=== PATIENT | male | born 1970 | race Caucasian/White ===

== ENCOUNTER 2016-08-17 13:15 | Observation (INO) ==
--- NOTE | 2016-08-17 13:26 | Emergency Department Note ---
Disposition Clinical Impression: Chest pain Disposition: Admitted As Inpatient Condition: Fair General Adult HPI - General Chief complaint: ED Chest Pain Stated complaint: chest pain Time Seen by Provider: 08/17/16 13:18 Source: patient Limitations: no limitations - History of Present Illness Pain Scale: 9 - Related Data Home Medications Medication Instructions Recorded Confirmed Alprazolam [Xanax] 2 mg PO TID 08/29/15 08/17/16 Gabapentin [Neurontin] 800 mg PO QID 08/29/15 08/17/16 Metoprolol [Lopressor] 25 mg PO BID 08/29/15 08/17/16 Quetiapine Fumarate [SEROquel] 100 mg PO HS 08/29/15 08/17/16 Furosemide [Lasix] 20 mg PO DAILY 08/17/16 08/17/16 OXcarbazepine [Trileptal] 300 mg PO DAILY 08/17/16 08/17/16 Potassium Chloride [K-Tab ER] 20 meq PO DAILY 08/17/16 08/17/16 Valsartan/Hydrochlorothiazide 1 each PO DAILY 08/17/16 08/17/16 [Diovan Hct 320-12.5 mg Tab] Allergies Allergy/AdvReac Type Severity Reaction Status Date / Time No Known Allergies Allergy Verified 11/14/14 08:01 Past Medical History - Past Medical History Medical history: Reports: hypertension, kidney stones, other Surgical history: Reports: orthopedic, other, other Psychiatric history: Reports: anxiety, bipolar - Social History Smoking Status: Never smoker Smokeless Tobacco Status: No Alcohol use: Reports: none Drug use: Reports: none Physical Exam - General Limitations: no limitations General appearance: alert Course Vital Signs Temperature 98.2 F 08/17/16 13:16 Pulse Rate 70 08/17/16 13:16 Respiratory Rate 16 08/17/16 13:16 Blood Pressure 192/100 08/17/16 13:16 O2 Sat by Pulse Oximetry 99 08/17/16 13:16 Temperature 98.3 F 08/17/16 16:19 Pulse Rate 64 08/17/16 16:19 Respiratory Rate 16 08/17/16 16:19 Blood Pressure 192/97 08/17/16 16:19 O2 Sat by Pulse Oximetry 98 08/17/16 16:19 Oxygen Delivery Oxygen Delivery Room Air Medical Decision Making - Lab Data Result diagrams: 08/17/16 13:58 08/17/16 13:58 Lab Results 08/17/16 08/17/16 08/17/16 Range/Units 13:58 13:58 13:58 WBC 7.4 (4.3-11.1) K/mcL RBC 5.61 H (4.19-5.50) M/mcL Hgb 15.8 (12.9-16.9) g/dL Hct 47.0 (37.5-50.1) % MCV 83.8 (83.0-100.0) fL MCH 28.2 (28.0-33.3) pg MCHC 33.6 (31.6-35.5) g/dL RDW 13.3 (11.5-14.5) % Plt Count 195 (140-400) K/mcL MPV 11.2 (9.4-12.4) fL Immature Gran % 0.3 (0-4) % Seg Neutrophils % 76.2 % Lymphocytes % 17.1 % Monocytes % 5.8 % Eosinophils % 0.3 % Basophils % 0.3 % Neutrophils # 5.6 (1.6-8.9) K/mcL Lymphocytes # 1.3 (0.6-4.6) K/mcL Monocytes # 0.4 (0.0-1.3) K/mcL Eosinophils # 0.0 (0.0-0.6) K/mcL Basophils # 0.0 (0.0-0.2) K/mcL PT 13.0 H (9.4-12.1) Seconds INR 1.2 APTT 33.2 (26.0-36.0) Seconds Sodium (136-145) mEq/L Potassium (3.5-4.5) mEq/L Chloride (98-109) mEq/L Carbon Dioxide (19-29) mEq/L BUN (8-26) mg/dL Creatinine (0.72-1.25) mg/dL Est GFR ( Amer) (> 60) Est GFR (Non-Af Amer) (> 60) BUN/Creatinine Ratio (6-26) Glucose (70-99) mg/dL Calculated Osmolality (280-300) Calcium (8.6-10.8) mg/dL Troponin I (0-0.03) ng/mL B-Natriuretic Peptide 27 (0-100) pg/mL 08/17/16 08/17/16 Range/Units 13:58 13:58 WBC (4.3-11.1) K/mcL RBC (4.19-5.50) M/mcL Hgb (12.9-16.9) g/dL Hct (37.5-50.1) % MCV (83.0-100.0) fL MCH (28.0-33.3) pg MCHC (31.6-35.5) g/dL RDW (11.5-14.5) % Plt Count (140-400) K/mcL MPV (9.4-12.4) fL Immature Gran % (0-4) % Seg Neutrophils % % Lymphocytes % % Monocytes % % Eosinophils % % Basophils % % Neutrophils # (1.6-8.9) K/mcL Lymphocytes # (0.6-4.6) K/mcL Monocytes # (0.0-1.3) K/mcL Eosinophils # (0.0-0.6) K/mcL Basophils # (0.0-0.2) K/mcL PT (9.4-12.1) Seconds INR APTT (26.0-36.0) Seconds Sodium 139 (136-145) mEq/L Potassium 3.7 (3.5-4.5) mEq/L Chloride 104 (98-109) mEq/L Carbon Dioxide 25 (19-29) mEq/L BUN 11 (8-26) mg/dL Creatinine 0.90 (0.72-1.25) mg/dL Est GFR ( Amer) > 60 (> 60) Est GFR (Non-Af Amer) > 60 (> 60) BUN/Creatinine Ratio 12 (6-26) Glucose 119 H (70-99) mg/dL Calculated Osmolality 289 (280-300) Calcium 10.2 (8.6-10.8) mg/dL Troponin I 0.00 (0-0.03) ng/mL B-Natriuretic Peptide (0-100) pg/mL Attestation Statement - Attestation Attestation: I examined this patient and my medical decision-making was reviewed with the [employer] MACHINE OPERATOR/PA/Advanced Practice Nurse/Resident Physician. I agree with the documented findings, disposition and treatment plan as described except to the extent set forth below. Face to face time provided C/o CP over past 5 hrs. h/o HTN. Extensive at triage. Anxious appearing on exam. Patient seen and evaluated in conjunction with the resident physician Dr. Maria
[2016-08-17] MEDS ORDERED: Aspirin 81 MG TAB.CHEW PO ONE (13:27)
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
[2016-08-17 14:06] LABS: Basophils % 0.3 %; Eosinophils % 0.3 %; Hemoglobin 15.8 g/dL (12.9-16.9); Immature Granulocytes % 0.3 % (0-4); Lymphocytes # 1.3 K/mcL (0.6-4.6); Lymphocytes % 17.1 %; Mean Corpuscular HGB Conc 33.6 g/dL (31.6-35.5); Mean Corpuscular Hemoglobin 28.2 pg (28.0-33.3); Mean Corpuscular Volume 83.8 fL (83.0-100.0); Mean Platelet Volume 11.2 fL (9.4-12.4); Monocytes # 0.4 K/mcL (0.0-1.3); Monocytes % 5.8 %; Neutrophils # 5.6 K/mcL (1.6-8.9); Platelet Count 195 K/mcL (140-400); Red Blood Count 5.61 M/mcL (4.19-5.50); Red Cell Distribution Width 13.3 % (11.5-14.5); Segmented Neutrophils % 76.2 %
[2016-08-17 14:17] LABS: INR 1.2
[2016-08-17 14:18] LABS: BUN/Creatinine Ratio 12 (6-26); Blood Urea Nitrogen 11 mg/dL (8-26); Calcium 10.2 mg/dL (8.6-10.8); Carbon Dioxide 25 mEq/L (19-29); Chloride 104 mEq/L (98-109); Glucose 119 mg/dL (70-99); Osmolality,Calculated 289 (280-300); Potassium 3.7 mEq/L (3.5-4.5); Sodium 139 mEq/L (136-145); eGFR For African Americans > 60 (> 60); eGFR For Non-African Americans > 60 (> 60)
[2016-08-17 14:19] LABS: Activated Partial Thrombo Time 33.2 Seconds (26.0-36.0)
[2016-08-17] MEDS: Nitroglycerin 0.4 MG TAB.SUBL SL ONE ×2 (14:26→14:40)
[2016-08-17] MEDS ORDERED: Naloxone 0.4 MG/ML INJ IVP PRN (17:19)
[2016-08-17] MEDS ORDERED: Ondansetron 4 MG/2 ML VIAL IVP PRN (17:19)
[2016-08-17] MEDS ORDERED: Nitroglycerin 0.4 MG TAB.SUBL SL PRN (17:27)
--- NOTE | 2016-08-17 18:03 | Internal Med History&Physical ---
<Patricia Badillo - Last Filed: 08/17/16 18:15> Date of Encounter: 08/17/16 Time of Encounter: 17:57 Assessment and Plan (1) Chest pain Current visit: Yes Status: Acute Patient has been experiencing midsternal nonradiating chest pain which she rates 8 out 10 which started this a.m. Pain was relieved with nitroglycerin. His risk factors of hypertension morbid obesity family history. First cardiac troponin was negative we will continue to cycle 2 continuous cardiac monitoring 3 continue with aspirin and beta denise we will hold morning dose 4 obtain cardiac echo 5 nothing by mouth after midnight-patient will undergo phonological stress in a.m. 6 lipid level Qualifiers: Chest pain type: unspecified Qualified Code(s): R07.9 - Chest pain, unspecified (2) HTN (hypertension) Current visit: Yes Status: Acute 1 presently controlled we will continue with metoprolol, Diovan - Qualifiers: Hypertension type: essential hypertension Qualified Code(s): I10 - Essential (primary) hypertension (3) Bipolar 1 disorder Current visit: No Status: Chronic 1 presently stable we will continue with home medications (4) DVT prophylaxis Current visit: Yes Status: Acute 1 [facility] Internal Medicine - H&P: HPI Chief complaint: Chest pain Admitted From: Emergency Dept Plans for Post Hospital Care: Home History of present illness: Mr. Adair is a 45 year old male past medical history of hypertension bipolar disorder and morbid obesity. Patient awoke approximately 8:30 this a.m. experiencing fluttering-like pain midsternally the pain then became very sharp to aching radiating to his left chest there were no aggravating or relieving factors he did have associated symptoms of diaphoresis and nausea he rated 8 out of 10. The pain continued throughout the day without any relief. He denies any fevers chills diarrhea shortness of breath or abdominal pain. He presented to the ER with the above complaints. According to ER records lab work was obtained which was all unremarkable troponin was 0. EKG was sinus rhythm no ST-T wave abnormalities noted. Chest x-ray is clear. Patient does have a family cardiac history his mother undergoing bypass surgery age 50 for father dying of sudden [place] at age 62. He has been admitted for further workup and evaluation. Presently states he is having 98 out of 10 mid sternal chest pain nonradiating no associated symptoms at this time. Heart sounds are regular S1 and S2 with no rubs clicks gallops or murmurs noted lungs sounds are clear throughout all narvaez. Abdomen soft nontender lower extremities there is slight pedal edema bilaterally. He is presently hemodynamically stable this time I reviewed this case with Dr. Agosto who agrees with plan. Past Med Surg Social Fam HX - Past Medical History Medical history: hypertension, kidney stones, other Psychiatric history: anxiety, bipolar - Past Surgical History Surgical History: orthopedic, other, other - Social History Smoking Status: Never smoker Smokeless Tobacco Status: No Alcohol use: none Drug use: none - Family History Mother Adopted: [place]: Celi Adair Age: 62 Family Member Ethnicity: Non- Living Status: Still Living Hx Family Cardiac Disorders: Yes (CABG) Hx Family Respiratory Disorders: Yes (COPD) Hx Family Cancer: No Hx Family GI Disorders: No Hx Family Genitourinary Disorders: No Hx Family Endocrine Disorder: Yes (Diabetes) Hx Family Musculoskeletal Disorders: No Hx Family Neuromuscular Disorders: No Hx Family Neurologic Disorders: No Hx Family HEENT Disorders: No Hx Family Autoimmune Disorders: No Hx Family Reproductive Disorders: No Hx Family Psychosocial Disorders: No Hx Family Medical Disorders: No Father Living Status: Age at : 62 Cause of : [place] Internal Medicine - H&P: Meds Alprazolam [Xanax] 2 mg PO TID 08/29/15 [History] Gabapentin [Neurontin] 800 mg PO QID 08/29/15 [History] Metoprolol [Lopressor] 25 mg PO BID 08/29/15 [History] Quetiapine Fumarate [SEROquel] 100 mg PO HS 08/29/15 [History] Furosemide [Lasix] 20 mg PO DAILY 08/17/16 [History] OXcarbazepine [Trileptal] 300 mg PO DAILY 08/17/16 [History] Potassium Chloride [K-Tab ER] 20 meq PO DAILY 08/17/16 [History] Valsartan/Hydrochlorothiazide [Diovan Hct 320-12.5 mg Tab] 1 each PO DAILY 08/17 [History] Allergies No Known Allergies Allergy (Verified 11/14/14 08:01) All Systems PM: A 10-system review of systems was performed and is negative for pertinent findings except as documented above in the HPI. - Constitutional Constitutional: no chills, no fever(s), no night sweats - EENT Eyes: no change in vision, no discharge, no pain, no photophobia Nose, mouth and throat: no dysphagia, no nasal discharge, no neck pain, no sore throat - Cardiovascular Cardiovascular ROS IM: chest pain, edema, no diaphoresis, no dyspnea, no lightheadedness, no palpitations, no syncope - Respiratory Respiratory: no cough, no dyspnea, no wheezing, no excessive phlegm production - Gastrointestinal Gastrointestinal: nausea, no abdominal pain, no diarrhea, no hematemesis, no hematochezia, no melena, no vomiting - Musculoskeletal Musculoskeletal ROS IM: no numbness, no tingling - Integumentary Integumentary IM: no rash, no unusual bruising - Neurological Neurological ROS: no confusion, no convulsions, no focal weakness, no numbness, no tingling, no tremor(s) - Hematologic/Lymphatic Hematologic/Lymphatic: no easy bruising - Constitutional Vitals: Temp Pulse Resp BP Pulse Ox 98.3 F 64 16 192/97 98 08/17/16 16:19 08/17/16 16:19 08/17/16 16:19 08/17/16 16:19 08/17/16 16:19 General appearance: Present: A&O X 3, morbidly obese - Head Head exam: Present: atraumatic, normocephalic - Eye Eye exam: Present: PERRL, conjuntiva pink, sclera anicteric Pupils: Present: PERRL - Neck Neck exam general surgery: Present: supple, trachea midline. Absent: lymphadenopathy - Respiratory Respiratory exam: Present: CTAB. Absent: accessory muscle use, rales, rhonchi, wheezes - Cardiovascular Cardiovascular exam: Present: RRR, +S1, +S2. Absent: diastolic murmur, gallop, rubs, systolic murmur - GI/Abdominal GI/Abdominal exam: Present: normal bowel sounds, soft, no peritoneal signs. Absent: distended, tenderness - Extremities Exam Extremities exam: Present: warm, radial pulses palpable and symetrical. Absent : calf tenderness, cyanotic, pedal edema - Neurological Exam Neurological exam: Present: CN II-XII intact, oriented X3, no focal deficits. Absent: pronater drift, facial droop, speech deficit - Skin Skin exam: Present: dry, intact Internal Med - H&P Results - Labs CBC & Chem 7: 08/17/16 13:58 08/17/16 13:58 - EKG Data EKG shows normal: sinus rhythm - EKG Data Prior EKG available for review: yes When compared to previous EKG: there is no significant change - Diagnostic Studies Other Images Additional comments: Chest X-Ray 08/17/16 13:27 IMPRESSION: No acute cardiopulmonary process. D/ / 08/17/2016 15:19:01 Jean John MD / jorden Interpreting Provider: Jean John MD <Garrett Agosto T - Last Filed: 08/17/16 18:43> Date of Encounter: 08/17/16 Internal Medicine - H&P: HPI History of present illness: Mr. Adair is a 45 year old male All Systems PM: A 10-system review of systems was performed and is negative for pertinent findings except as documented above in the HPI. - Constitutional Vitals: Temp Pulse Resp BP Pulse Ox 98.3 F 64 16 192/97 98 08/17/16 16:19 08/17/16 16:19 08/17/16 16:19 08/17/16 16:19 08/17/16 16:19 Internal Med - H&P Results - Labs CBC & Chem 7: 08/17/16 13:58 08/17/16 13:58 - Attending Attestation 45 M HLD, DM, Morbidly Obese, HTN presented with chest pain Seen independently and examined Chest pain is not reproducible No EKG changes CXR unremarkable Labs unremarkable Agree with stress test if trops are negative X2, Nitro prn morphine prn.
[2016-08-17] MEDS: *HR* Morphine 2 MG/ML SYRINGE IVP PRN (18:43)
[2016-08-17] MEDS ORDERED: Perflutren Lipid Microsphere 1.3 ML in 0.9 % Sodium Chloride 8.7 ML IVP ONE (20:01)
[2016-08-17] MEDS: Gabapentin 400 MG CAPSULE PO SCH (20:18)
[2016-08-17] MEDS: ALPRAZolam 1 MG TABLET PO SCH (20:18)
[2016-08-17] MEDS: Acetaminophen 325 MG TABLET PO PRN (20:35)
[2016-08-17] MEDS ORDERED: OXcarbazepine 150 MG TABLET PO SCH (21:00)
[2016-08-18] MEDS: *HR* Morphine 2 MG/ML SYRINGE IVP PRN ×3 (00:27→09:09)
[2016-08-18] MEDS: Acetaminophen 325 MG TABLET PO PRN (03:33)
[2016-08-18 03:49] LABS: BUN/Creatinine Ratio 15 (6-26); Basophils % 0.4 %; Blood Urea Nitrogen 15 mg/dL (8-26); Calcium 9.2 mg/dL (8.6-10.8); Carbon Dioxide 24 mEq/L (19-29); Chloride 107 mEq/L (98-109); Chol/HDL Ratio 3.6 (0-4.9); Cholesterol 120 mg/dL (< 200); Eosinophils % 0.6 %; Glucose 94 mg/dL (70-99); HDL Cholesterol 33 mg/dL (40-59); Hematocrit 43.5 % (37.5-50.1); Hemoglobin 14.6 g/dL (12.9-16.9); Immature Granulocytes % 0.3 % (0-4); LDL Cholesterol,Calculated 59 mg/dL (0-99); Lymphocytes # 2.5 K/mcL (0.6-4.6); Lymphocytes % 35.4 %; Magnesium 2.2 mg/dL (1.6-2.6); Mean Corpuscular HGB Conc 33.6 g/dL (31.6-35.5); Mean Corpuscular Hemoglobin 28.9 pg (28.0-33.3); Mean Platelet Volume 11.6 fL (9.4-12.4); Monocytes # 0.7 K/mcL (0.0-1.3); Monocytes % 9.6 %; Neutrophils # 3.8 K/mcL (1.6-8.9); Osmolality,Calculated 293 (280-300); Platelet Count 179 K/mcL (140-400); Red Blood Count 5.06 M/mcL (4.19-5.50); Red Cell Distribution Width 13.7 % (11.5-14.5); Segmented Neutrophils % 53.7 %; Sodium 141 mEq/L (136-145); Triglycerides 138 mg/dL (< 150); eGFR For African Americans > 60 (> 60); eGFR For Non-African Americans > 60 (> 60)
[2016-08-18 03:51] LABS: Potassium 3.7 mEq/L (3.5-4.5)
[2016-08-18] MEDS ORDERED: Regadenoson 0.4 MG/5 ML SYRINGE IVP ONE (06:13)
[2016-08-18] MEDS ORDERED: OXcarbazepine 150 MG TABLET PO SCH (09:00)
[2016-08-18] MEDS ORDERED: Furosemide 20 MG TABLET PO SCH (09:00)
[2016-08-18] MEDS ORDERED: hydroCHLOROthiazide 25 MG TABLET PO SCH (09:00)
[2016-08-18] MEDS ORDERED: Aspirin Enteric Coated 81 MG Tablet PO SCH (09:00)
[2016-08-18] MEDS ORDERED: Valsartan 160 MG TABLET PO SCH (09:00)
[2016-08-18 09:08] VITALS: BP 165/119
[2016-08-18] MEDS: Gabapentin 400 MG CAPSULE PO SCH (09:08)
[2016-08-18] MEDS: ALPRAZolam 1 MG TABLET PO SCH (09:09)
[2016-08-18] MEDS ORDERED: *HR* OxyCODONE/APAP 5/325 TABLET PO PRN (10:42)
--- NOTE | 2016-08-18 11:54 | Discharge Summary ---
Date of Encounter: 08/18/16 Time of Encounter: 10:30 - Discharge Diagnosis (1) Chest pain Priority: Primary Status: Acute Qualifiers: Chest pain type: unspecified Qualified Code(s): R07.9 - Chest pain, unspecified (2) DVT prophylaxis Priority: Secondary Status: Acute (3) HTN (hypertension) Priority: Secondary Status: Acute Qualifiers: Hypertension type: essential hypertension Qualified Code(s): I10 - Essential (primary) hypertension - Discharge Medications Prescriptions: Acetaminophen 650 mg PO Q6H #20 solution Aspirin Enteric Coated [Aspirin EC] 81 mg PO DAILY #30 tablet. Metoprolol [Lopressor] 25 mg PO BID #60 tablet Home Medications: Alprazolam [Xanax] 2 mg PO TID 08/29/15 [History] Gabapentin [Neurontin] 800 mg PO QID 08/29/15 [History] Metoprolol [Lopressor] 25 mg PO BID 08/29/15 [History] Quetiapine Fumarate [SEROquel] 100 mg PO HS 08/29/15 [History] Furosemide [Lasix] 20 mg PO DAILY 08/17/16 [History] OXcarbazepine [Trileptal] 300 mg PO DAILY 08/17/16 [History] Potassium Chloride [K-Tab ER] 20 meq PO DAILY 08/17/16 [History] Valsartan/Hydrochlorothiazide [Diovan Hct 320-12.5 mg Tab] 1 each PO DAILY 08/17 [History] Acetaminophen 650 mg PO Q6H #20 solution 08/18/16 [Rx] Aspirin Enteric Coated [Aspirin EC] 81 mg PO DAILY #30 tablet. 08/18/16 [Rx] Metoprolol [Lopressor] 25 mg PO BID #60 tablet 08/18/16 [Rx] Allergies/Adverse Reactions: Allergies No Known Allergies Allergy (Verified 11/14/14 08:01) Procedures/tests Complete & Pending: Procedures Performed prior 72 hours Category Date Time Status NM derrick perf SPECT multi [NM] Routine Exams 08/17/16 17:51 Taken EV echocardiogram w enhance Routine Y 08/17/16 17:48 Completed SP pharm nuclear stress Routine Y 08/18/16 07:15 Completed Date of admission: 08/17/16 15:20 Primary care physician: Sukhwinder Liang Discharging clinician: Kinga Gamble Anticipated date of discharge: 08/18/16 - Patient Status Disposition: Left Against Medical Advice Condition: Fair - Discharge Instructions Follow Up With: Leticia Teixeira CNP [Advanced Practice Nurse] - 08/25/16 11:30 am (Dr. Person out of office, f/u appt scheduled with KAREN) Miah Person DO [Primary Care Provider] - Interval History: Mr. Adair is a 45 year old male past medical history of hypertension bipolar disorder and morbid obesity. Patient awoke approximately 8:30 this a.m. experiencing fluttering-like pain midsternally the pain then became very sharp to aching radiating to his left chest there were no aggravating or relieving factors he did have associated symptoms of diaphoresis and nausea he rated 8 out of 10. The pain continued throughout the day without any relief. He denies any fevers chills diarrhea shortness of breath or abdominal pain. He presented to the ER with the above complaints. According to ER records lab work was obtained which was all unremarkable troponin was 0. EKG was sinus rhythm no ST-T wave abnormalities noted. Chest x-ray is clear. Patient does have a family cardiac history his mother undergoing bypass surgery age 50 for father dying of sudden MA at age 62. He has been admitted for further workup and evaluation. Presently states he is having 98 out of 10 mid sternal chest pain nonradiating no associated symptoms at this time. Heart sounds are regular S1 and S2 with no rubs clicks gallops or murmurs noted lungs sounds are clear throughout all narvaez. Abdomen soft nontender lower extremities there is slight pedal edema bilaterally. Hospital course: Mr. Adair is a 45 year old male admitted for chest pain. Patient was placed on cardiac monitoring, 3 sets of troponin negative. EKG and chest x-ray unremarkable. Patient had first half of stress test this morning. However, patient said that he has emergency with his energy attorney and court issue, which cannot delay. He asked to sign AMA and leave hospital. I saw and examined the patient earlier. He said that the pain subsided but still mildly painful, 3-4/10. Denies shortness of breath. Vitals are stable except BP 165/119. I went to the room again and talked to patient. I told him the risk of leaving hospital with AMA, which include undiagnosed life-threatening medical problem, delayed treatment, and even . Pt verbalized understanding and still insisted with AMA. Finally, patient left with AMA, prescription of aspirin 81 mg by mouth daily, metoprolol 25 mg twice a day, and Tylenol when necessary was given patient. Patient promised to follow-up with PCP as outpatient as soon as possible, and come back to ER if symptoms are getting worse. - Time Spent with Patient Total time spent providing and/or coordinating discharge services: 40 min Greater than 30 minutes - Constitutional Vitals: Temp Pulse Resp BP Pulse Ox 98.2 F 80 18 165/119 98 08/18/16 09:06 08/18/16 09:06 08/18/16 09:06 08/18/16 09:06 08/18/16 09:06 General appearance: Present: A&O X 3, morbidly obese - Head Head exam: Present: atraumatic, normocephalic - Eye Eye exam: Present: PERRL, conjuntiva pink, sclera anicteric Pupils: Present: PERRL - Neck Neck exam general surgery: Present: supple, trachea midline. Absent: lymphadenopathy - Respiratory Respiratory exam: Present: CTAB. Absent: accessory muscle use, rales, rhonchi, wheezes - Cardiovascular Cardiovascular exam: Present: RRR, +S1, +S2. Absent: diastolic murmur, gallop, rubs, systolic murmur - GI/Abdominal GI/Abdominal exam: Present: normal bowel sounds, soft, no peritoneal signs. Absent: distended, tenderness - Extremities Exam Extremities exam: Present: warm, radial pulses palpable and symetrical. Absent : calf tenderness, cyanotic, pedal edema - Neurological Exam Neurological exam: Present: CN II-XII intact, oriented X3, no focal deficits. Absent: pronater drift, facial droop, speech deficit - Skin Skin exam: Present: dry, intact
--- NOTE | 2016-08-18 17:21 | Electrocardiograph Report ---
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
== END 2016-08-18 11:00 | disposition left against medical advice (07) ==
LOC: EMEROO 13:15 → 2ANU 13:15
PROVIDERS: ADMIT Internal Medicine; ATTEND Internal Medicine

== ENCOUNTER 2016-11-12 12:10 | Observation (INO) ==
[2016-11-12 12:55] LABS: Basophils % 0.6 %; Eosinophils # 0.3 K/mcL (0.0-0.6); Eosinophils % 3.8 %; Hematocrit 43.8 % (37.5-50.1); Hemoglobin 13.9 g/dL (12.9-16.9); Immature Granulocytes % 0.3 % (0-4); Mean Corpuscular HGB Conc 31.7 g/dL (31.6-35.5); Mean Corpuscular Hemoglobin 27.8 pg (28.0-33.3); Mean Corpuscular Volume 87.6 fL (83.0-100.0); Mean Platelet Volume 11.7 fL (9.4-12.4); Monocytes # 0.6 K/mcL (0.0-1.3); Monocytes % 8.5 %; Neutrophils # 3.9 K/mcL (1.6-8.9); Platelet Count 151 K/mcL (140-400); Red Cell Distribution Width 13.2 % (11.5-14.5); Segmented Neutrophils % 56.8 %
[2016-11-12 13:06] LABS: Calcium 9.2 mg/dL (8.6-10.8); Potassium 4.4 mEq/L (3.5-4.5)
--- NOTE | 2016-11-12 16:41 | Emergency Department Note ---
Disposition Clinical Impression: Chest pain Disposition: Admitted As Inpatient Condition: Good Referrals: Miah Person DO [Primary Care Provider] - Forms: ED Satisfaction Letter Time of Disposition: 17:22 Chest Pain HPI - General Chief Complaint: ED Chest Pain Stated Complaint: chest pain Time Seen by Provider: 11/12/16 16:06 Source: patient Mode of arrival: ambulatory Limitations: no limitations Vital Signs Reviewed: Yes Nursing Notes Reviewed: Yes - History of Present Illness HPI Narrative: Patient presents to the ED with the chief complaint of chest pain. Patient reports that he was admitted to the hospital a few months ago for similar episodes of chest pain. He reportedly had a normal nuclear stress test , but was supposed to have a heart catheter as an inpatient and he decided to sign out AGAINST MEDICAL ADVICE because he had to go to a court appointment. States that over the last 2 days he has had a return of this chest pain. He describes it as an electricity-like pain that he relates to being shot in the chest with a taser gun. States it lasts very briefly only a second or 2 at times. In short of breath and nauseated. That resolved spontaneously. He does not have any exertional symptoms and cannot seem to bring on the pain. States that he has not followed up with his primary care physician or a vascular surgery physician as he said he would and thinks that he needs to get checked out again. No fever or chills. No shortness of breath other than when the pain hit. No abdominal pain, nausea, vomiting or diarrhea. No history of DVT or PE Severity scale (1-10): 0 - Related Data Home Medications Medication Instructions Recorded Confirmed Alprazolam [Xanax] 2 mg PO TID 08/29/15 11/12/16 Gabapentin [Neurontin] 800 mg PO QID 08/29/15 11/12/16 Quetiapine Fumarate [SEROquel] 100 mg PO HS 08/29/15 11/12/16 Furosemide [Lasix] 20 mg PO DAILY 08/17/16 11/12/16 OXcarbazepine [Trileptal] 300 mg PO HS 08/17/16 11/12/16 Potassium Chloride [K-Tab ER] 20 meq PO DAILY 08/17/16 11/12/16 Valsartan/Hydrochlorothiazide 1 each PO DAILY 08/17/16 11/12/16 [Diovan Hct 320-12.5 mg Tab] Acetaminophen 650 mg PO Q6H PRN 11/12/16 11/12/16 Previous Rx's Medication Instructions Recorded Aspirin Enteric Coated [Aspirin EC] 81 mg PO DAILY #30 tablet. 08/18/16 Metoprolol [Lopressor] 25 mg PO BID #60 tablet 08/18/16 Allergies Allergy/AdvReac Type Severity Reaction Status Date / Time No Known Allergies Allergy Verified 11/14/14 08:01 All systems ED: reviewed and negative except as stated. Constitutional: Denies: fever, chills Cardiovascular: Reports: chest pain. Denies: dyspnea on exertion Respiratory: Reports: cough. Denies: sputum production Gastrointestinal: Reports: nausea. Denies: vomiting Genitourinary: Denies: dysuria Musculoskeletal: Denies: back pain Integumentary: Denies: rash Neurological: Denies: headache Endocrine: Denies: fatigue Chest Pain PMH - Past Medical History Medical history: Reports: hypertension, kidney stones Surgical history: Reports: orthopedic, other, other Psychiatric history: Reports: anxiety, bipolar - Social History Smoking Status: Never smoker Alcohol use: Reports: none Drug use: Reports: none Physical Exam - General Limitations: no limitations General appearance: alert, in no apparent distress - Head Head exam: atraumatic, normocephalic, normal inspection - Eye Eye exam: Present: normal appearance, PERRL, EOMI - ENT ENT exam: normal exam, normal oropharynx, mucous membranes moist - Neck Neck exam: Present: normal inspection, full ROM, trachea midline - Chest Chest inspection: Present: normal inspection, symmetric chest wall rise - Respiratory Respiratory exam: Present: normal lung sounds bilaterally - Cardiovascular Cardiovascular exam: Present: regular rate, normal rhythm, normal heart sounds - Abdominal Exam Abdominal exam: Present: soft, Non-Tender. Absent: tenderness, distention, guarding, rebound, rigidity - Extremities Exam Extremities exam: Present: normal inspection, full ROM. Absent: tenderness, pedal edema - Back Exam Back exam: Present: normal inspection, full ROM. Absent: tenderness - Neurological Exam Neurological exam: Present: alert, oriented X3 - Psychiatric Psychiatric exam: Present: normal affect, normal mood - Skin Skin exam: Present: warm, dry, intact, normal color Course - Reevaluation(s) Reevaluation #1: Spoke with the on-call vascular surgery physician, Dr. Hinton. Did recommend admission for likely heart catheter in the morning. Patient agreeable to plan. States he does have "stuff to do." Tuesday morning, and as long as he could get done before then he would not again leave AGAINST MEDICAL ADVICE. Time: 17:21 Vital Signs Temperature 98.8 F 11/12/16 12:27 Pulse Rate 63 11/12/16 12:27 Respiratory Rate 18 11/12/16 12:27 Blood Pressure 151/85 11/12/16 12:27 O2 Sat by Pulse Oximetry 97 11/12/16 12:27 Temperature 98.8 F 11/12/16 12:27 Pulse Rate 63 11/12/16 18:13 Respiratory Rate 20 11/12/16 18:13 Blood Pressure 160/91 11/12/16 18:13 O2 Sat by Pulse Oximetry 100 11/12/16 18:13 Oxygen Delivery Oxygen Delivery Room Air Chest Pain - Lab Data Result diagrams: 11/12/16 12:47 11/12/16 12:47 Lab Results 11/12/16 11/12/16 11/12/16 Range/Units 12:47 12:47 12:47 WBC 6.8 (4.3-11.1) K/mcL RBC 5.00 (4.19-5.50) M/mcL Hgb 13.9 (12.9-16.9) g/dL Hct 43.8 (37.5-50.1) % MCV 87.6 (83.0-100.0) fL MCH 27.8 L (28.0-33.3) pg MCHC 31.7 (31.6-35.5) g/dL RDW 13.2 (11.5-14.5) % Plt Count 151 (140-400) K/mcL MPV 11.7 (9.4-12.4) fL Immature Gran % 0.3 (0-4) % Seg Neutrophils % 56.8 % Lymphocytes % 30.0 % Monocytes % 8.5 % Eosinophils % 3.8 % Basophils % 0.6 % Neutrophils # 3.9 (1.6-8.9) K/mcL Lymphocytes # 2.0 (0.6-4.6) K/mcL Monocytes # 0.6 (0.0-1.3) K/mcL Eosinophils # 0.3 (0.0-0.6) K/mcL Basophils # 0.0 (0.0-0.2) K/mcL D-Dimer (0-500) ng/mLFEU Sodium 139 (136-145) mEq/L Potassium 4.4 (3.5-4.5) mEq/L Chloride 106 (98-109) mEq/L Carbon Dioxide 26 (19-29) mEq/L BUN 20 (8-26) mg/dL Creatinine 1.60 H (0.72-1.25) mg/dL Est GFR ( Amer) 57 L (> 60) Est GFR (Non-Af Amer) 47 L (> 60) BUN/Creatinine Ratio 13 (6-26) Glucose 94 (70-99) mg/dL Calculated Osmolality 290 (280-300) Calcium 9.2 (8.6-10.8) mg/dL Troponin I 0.00 (0-0.03) ng/mL 11/12/16 11/12/16 Range/Units 16:26 16:26 WBC (4.3-11.1) K/mcL RBC (4.19-5.50) M/mcL Hgb (12.9-16.9) g/dL Hct (37.5-50.1) % MCV (83.0-100.0) fL MCH (28.0-33.3) pg MCHC (31.6-35.5) g/dL RDW (11.5-14.5) % Plt Count (140-400) K/mcL MPV (9.4-12.4) fL Immature Gran % (0-4) % Seg Neutrophils % % Lymphocytes % % Monocytes % % Eosinophils % % Basophils % % Neutrophils # (1.6-8.9) K/mcL Lymphocytes # (0.6-4.6) K/mcL Monocytes # (0.0-1.3) K/mcL Eosinophils # (0.0-0.6) K/mcL Basophils # (0.0-0.2) K/mcL D-Dimer 234 (0-500) ng/mLFEU Sodium (136-145) mEq/L Potassium (3.5-4.5) mEq/L Chloride (98-109) mEq/L Carbon Dioxide (19-29) mEq/L BUN (8-26) mg/dL Creatinine (0.72-1.25) mg/dL Est GFR ( Amer) (> 60) Est GFR (Non-Af Amer) (> 60) BUN/Creatinine Ratio (6-26) Glucose (70-99) mg/dL Calculated Osmolality (280-300) Calcium (8.6-10.8) mg/dL Troponin I 0.01 (0-0.03) ng/mL S.B.A.R. - S.B.A.R. Situation: Demographics, MOA Background: Presenting Complaint, Relevant PMH, Meds, & Allergies Assessment: Vital Signs, Course and respsone to treatment, Exam Concerns, Patient/Family Expectation, Pertinant Lab Results, Outstanding Labs Recommendation: Barrier(s) to disposition, Recommendation based on pending studies, treatments, or consults S.B.A.R. Report Given to: Mere Mitchell S.B.A.RDianelys Repor Time: 18:16 Attestation Statement - Attestation Attestation: I, Gulshan Huerta DO, examined this patient [id number] and my medical decision-making was reviewed with Dr. Wallace Schofield, Resident Physician. I agree with the documented findings, disposition and treatment plan as described except to the extent set forth below. Please see my progress notes for details. 44-year-old male presents emergency room complaining of intermittent chest pain and discomfort. Patient was evaluated just over one month ago for similar issues recommend a catheterization but left the hospital AMA. Patient has had similar symptoms over the last several weeks with a been worsening over the last several days. Vital signs are stable in presentation. Patient triaged last performed and we evaluated these labs approximately 2-1/2 hours after the patient arrived back to our bed. Patient is otherwise stable with normal laboratory workup of this time. I reviewed the recent stress test with the on- call vascular surgery physician Dr. hinton. She recommended the patient was still living chest pain discomfort and symptoms that we could admit the patient for further cardiac evaluation and possible catheterization. After this conversation as well as review the labs hospitals will be paged. CGI tell documentation of the physical exam, medical intervention, medical decision making process, disposition and the resident physician's note
[2016-11-12] MEDS ORDERED: Aspirin 325 MG TABLET PO ONE (17:57)
[2016-11-12] MEDS ORDERED: Acetaminophen 325 MG TABLET PO PRN (20:00)
[2016-11-12] MEDS ORDERED: Naloxone 0.4 MG/ML INJ IVP PRN (20:00)
[2016-11-12] MEDS ORDERED: Nitroglycerin 0.4 MG TAB.SUBL SL PRN (20:09)
[2016-11-12] MEDS ORDERED: 0.9 % Sodium Chloride 1,000 ML IVC SCH (20:15)
[2016-11-12] MEDS: OXcarbazepine 150 MG TABLET PO SCH (20:47)
[2016-11-12] MEDS: ALPRAZolam 1 MG TABLET PO SCH (20:48)
[2016-11-12] MEDS ORDERED: NON-FORMULARY MEDICATION 1 EACH EACH (Gabapentin [Neurontin] 800 MG) PO SCH (21:00)
[2016-11-12] MEDS: *HR* Morphine 2 MG/ML SYRINGE IVP PRN (21:09)
--- NOTE | 2016-11-12 22:15 | Internal Med History&Physical ---
<Patricia Badillo - Last Filed: 11/12/16 23:31> Date of Encounter: 11/12/16 Time of Encounter: 22:00 Assessment and Plan (1) Unstable angina Current visit: Yes Status: Acute 1 patient has been experiencing chest pain for the past 2 days. Has been intermittent describing as electrical type there are no aggravating or relieving factors. It occurs at rest. He underwent a stress test in July which he did not complete due to he signed out AMA. We will continue to trend his troponins. Presently they are negative. Patient did have some chest pain and EKG showed some ischemic changes I did speak with Dr. Waldrop who advised if troponins continue to be NEGATIVE Patient will undergo cardiac stress in a.m. If troponins are positive start heparin drip and cardiology will perform cath 2 continue with nitrates as well as morphine for chest pain 3 continuous cardiac monitoring 4 continue with aspirin and Plavix statin beta denise (2) MARIA DEL CARMEN (acute kidney injury) Current visit: Yes Status: Acute Creatinine is 1.6 baseline is less than 1. We will hold Lasix as well as Diovan we will decrease his Neurontin for now continue to monitor creatinine 2 we will give gentle IV fluids overnight 3 we will avoid nephrotoxins 4 monitor intake and output daily weights (3) HTN (hypertension) Current visit: No Status: Acute 1. Continue with his metoprolol hold Diovan Lasix dt MARIA DEL CARMEN we will resume once back to baseline Qualifiers: Hypertension type: essential hypertension Qualified Code(s): I10 - Essential (primary) hypertension (4) Bipolar 1 disorder Current visit: No Status: Chronic Presently stable we will continue with home medications (5) DVT prophylaxis Current visit: No Status: Acute Lovenox. Subcutaneous Internal Medicine - H&P: HPI Chief complaint: cp Admitted From: Emergency Dept Plans for Post Hospital Care: Home History of present illness: Mr. Adair is a 45 year old male past medical history of hypertension bipolar. Patient had a cardiac workup in July of this year after experiencing similar episodes of chest pain. Apparently he did not complete the stress test and signed out AMA due to have a court appearance. His chest pain improved been doing well up until approximately 2 days ago when his chest pain returned. He described it as electricity-like pain midsternal nonradiating lasting approximately a few seconds at a time. He does experience some shortness of breath and nausea during the episodes. There are no aggravating or relieving factors, and the pain resolved spontaneously. 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 According to ER records EKG showed normal sinus rhythm chest x-ray with Ground-glass attenuation in the medial right lung base. Pattern may represent asymmetric edema or atelectasis. Lab work does reveal some MARIA DEL CARMEN with creatinine 1.6 troponin was 0.01. ER physician did speak to cardiology doctor Palma he will see patient on consult He has been admitted for further workup and evaluation. On arrival to the floor with patient began to experience 10 out 10 chest pain again describing it as electricity which waxes and wanes at times feels heavy. He does not appear to be in any respiratory distress. His lung sounds are clear heart sounds are regular S1 and S2 without clicks, murmurs noted. Abdomen soft nontender no pedal edema at this time. Patient was given nitroglycerin as well as morphine EKG did show some ischemic changes, I did speak with Dr Waldrop who recommended to continue to trend troponin and if continue to elevate start on Hep drip and patient will be cath, if trop stay negative to stress patient in am Past Med Surg Social Fam HX - Past Medical History Medical history: hypertension, kidney stones Psychiatric history: anxiety, bipolar - Past Surgical History Surgical History: orthopedic, other, other - Social History Smoking Status: Never smoker Smokeless Tobacco Status: No Alcohol use: none Drug use: none - Family History Mother Adopted: No Family Member Ethnicity: Non- Living Status: Still Living Hx Family Cardiac Disorders: Yes (CABG) Hx Family Respiratory Disorders: Yes (COPD) Hx Family Cancer: No Hx Family GI Disorders: No Hx Family Endocrine Disorder: Yes (Diabetes) Hx Family Neuromuscular Disorders: No Hx Family Neurologic Disorders: No Hx Family HEENT Disorders: No Hx Family Autoimmune Disorders: No Father Living Status: Age at : 52 Cause of : [place] Hx Family Cardiac Disorders: Yes ([place]) Internal Medicine - H&P: Meds Alprazolam [Xanax] 2 mg PO TID 08/29/15 [History] Gabapentin [Neurontin] 800 mg PO QID 08/29/15 [History] Quetiapine Fumarate [SEROquel] 100 mg PO HS 08/29/15 [History] Furosemide [Lasix] 20 mg PO DAILY 08/17/16 [History] OXcarbazepine [Trileptal] 300 mg PO HS 08/17/16 [History] Potassium Chloride [K-Tab ER] 20 meq PO DAILY 08/17/16 [History] Valsartan/Hydrochlorothiazide [Diovan Hct 320-12.5 mg Tab] 1 each PO DAILY 08/17 [History] Aspirin Enteric Coated [Aspirin EC] 81 mg PO DAILY #30 tablet. 08/18/16 [Rx] Metoprolol [Lopressor] 25 mg PO BID #60 tablet 08/18/16 [Rx] Acetaminophen 650 mg PO Q6H PRN 11/12/16 [History] 3 Allergy/AdvReac Type Severity Reaction Status Date / Time No Known Allergies Allergy Verified 11/14/14 08:01 All Systems PM: A 10-system review of systems was performed and is negative for pertinent findings except as documented above in the HPI. - Constitutional Constitutional: no chills, no fever(s), no night sweats - EENT Eyes: no change in vision, no discharge, no pain, no photophobia Nose, mouth and throat: no dysphagia, no nasal discharge, no neck pain, no sore throat - Cardiovascular Cardiovascular ROS IM: chest pain - Respiratory Respiratory: no cough, no dyspnea, no wheezing, no excessive phlegm production - Gastrointestinal Gastrointestinal: no abdominal pain, no diarrhea, no hematemesis, no hematochezia, no melena, no nausea, no vomiting - Musculoskeletal Musculoskeletal ROS IM: no numbness, no tingling - Integumentary Integumentary IM: no rash, no unusual bruising - Neurological Neurological ROS: no confusion, no convulsions, no focal weakness, no numbness, no tingling, no tremor(s) - Hematologic/Lymphatic Hematologic/Lymphatic: no easy bruising - Constitutional Vitals: Temp Pulse Resp BP Pulse Ox 98 F 67 18 124/77 97 11/12/16 22:05 11/12/16 22:05 11/12/16 22:05 11/12/16 22:05 11/12/16 22:05 General appearance: Present: A&O X 3, answers questions appropriately - Head Head exam: Present: atraumatic, normocephalic - Eye Eye exam: Present: PERRL, conjuntiva pink, sclera anicteric Pupils: Present: PERRL - Neck Neck exam general surgery: Present: supple, trachea midline. Absent: lymphadenopathy - Respiratory Respiratory exam: Present: CTAB. Absent: accessory muscle use, rales, rhonchi, wheezes - Cardiovascular Cardiovascular exam: Present: RRR, +S1, +S2. Absent: diastolic murmur, gallop, rubs, systolic murmur - GI/Abdominal GI/Abdominal exam: Present: normal bowel sounds, soft, no peritoneal signs. Absent: distended, tenderness - Extremities Exam Extremities exam: Present: warm, radial pulses palpable and symmetrical. Absent : calf tenderness, cyanotic, pedal edema - Neurological Exam Neurological exam: Present: CN II-XII intact, oriented X3, no focal deficits. Absent: pronater drift, facial droop, speech deficit - Skin Skin exam: Present: dry, intact Internal Med - H&P Results - Labs CBC & Chem 7: 11/12/16 12:47 11/12/16 12:47 - EKG Data EKG shows normal: sinus rhythm - Diagnostic Studies Other Images Additional comments: Chest X-Ray 11/12/16 12:29 IMPRESSION: Ground-glass attenuation in the medial right lung base. Pattern may represent asymmetric edema or atelectasis. Developing pneumonitis cannot be excluded. D/ / Sawyer Zuñiga MD / Sawyer Zuñiga MD Interpreting Provider: Sawyer Zuñiga MD <Sharon Wise - Last Filed: 11/13/16 05:47> Date of Encounter: 11/12/16 Internal Medicine - H&P: HPI History of present illness: Mr. Adair is a 45 year old male All Systems PM: A 10-system review of systems was performed and is negative for pertinent findings except as documented above in the HPI. - Constitutional Vitals: Temp Pulse Resp BP Pulse Ox 98.1 F 63 20 117/74 97 11/13/16 03:25 11/13/16 03:25 11/13/16 03:25 11/13/16 03:25 11/13/16 03:25 Internal Med - H&P Results - Labs CBC & Chem 7: 11/13/16 03:09 11/13/16 03:09 Labs: Short CBC 11/13/16 Range/Units 03:09 WBC 5.3 (4.3-11.1) K/mcL Hgb 13.1 (12.9-16.9) g/dL Hct 40.5 (37.5-50.1) % Plt Count 150 (140-400) K/mcL Neutrophils # 2.4 (1.6-8.9) K/mcL BMP 11/13/16 03:09 Sodium 141 Potassium 4.3 Chloride 108 Carbon Dioxide 27 BUN 20 Creatinine 0.95 Glucose 103 H Calcium 8.9 Cardiac Enzymes 11/12/16 11/13/16 Range/Units 22:13 03:09 Troponin I 0.00 0.01 (0-0.03) ng/mL - Attending Attestation I have independently seen and examined the patient. Admitted for chest pain r/o ACS. Serial TNI, and if negative, nuclear stress in am. cardiology aware of the patient, he left AMA during his prior hospitalization when was admitted for the same issue. Did not finish prior stress test in the past. Cardiology consultation requested. Cased discussed with KAREN Badillo, I agree with her documented findings, assessment, and plan except as listed above.
[2016-11-12] MEDS: Gabapentin 300 MG CAPSULE PO SCH (23:31)
[2016-11-13 04:38] LABS: Basophils % 0.6 %; Eosinophils # 0.3 K/mcL (0.0-0.6); Eosinophils % 5.3 %; Hematocrit 40.5 % (37.5-50.1); Hemoglobin 13.1 g/dL (12.9-16.9); Immature Granulocytes % 0.2 % (0-4); Lymphocytes # 2.1 K/mcL (0.6-4.6); Lymphocytes % 40.5 %; Mean Corpuscular HGB Conc 32.3 g/dL (31.6-35.5); Mean Corpuscular Hemoglobin 28.1 pg (28.0-33.3); Mean Corpuscular Volume 86.9 fL (83.0-100.0); Mean Platelet Volume 12.1 fL (9.4-12.4); Monocytes # 0.5 K/mcL (0.0-1.3); Monocytes % 8.7 %; Neutrophils # 2.4 K/mcL (1.6-8.9); Platelet Count 150 K/mcL (140-400); Red Blood Count 4.66 M/mcL (4.19-5.50); Red Cell Distribution Width 13.3 % (11.5-14.5); Segmented Neutrophils % 44.7 %
[2016-11-13 04:58] LABS: BUN/Creatinine Ratio 21 (6-26); Blood Urea Nitrogen 20 mg/dL (8-26); Calcium 8.9 mg/dL (8.6-10.8); Carbon Dioxide 27 mEq/L (19-29); Chloride 108 mEq/L (98-109); Chol/HDL Ratio 3.1 (0-4.9); Cholesterol 102 mg/dL (< 200); Glucose 103 mg/dL (70-99); HDL Cholesterol 33 mg/dL (40-59); LDL Cholesterol,Calculated 48 mg/dL (0-99); Osmolality,Calculated 295 (280-300); Potassium 4.3 mEq/L (3.5-4.5); Sodium 141 mEq/L (136-145); Triglycerides 107 mg/dL (< 150); eGFR For African Americans > 60 (> 60); eGFR For Non-African Americans > 60 (> 60)
[2016-11-13] MEDS ORDERED: Regadenoson 0.4 MG/5 ML SYRINGE IVP ONE (07:03)
[2016-11-13] MEDS ORDERED: NON-FORMULARY MEDICATION 1 EACH EACH (Valsartan/Hydrochlorothiazide [Diovan Hct 320-12.5 M PO SCH (09:00)
[2016-11-13] MEDS ORDERED: Furosemide 20 MG TABLET PO SCH (09:00)
[2016-11-13] MEDS ORDERED: Aspirin Enteric Coated 81 MG Tablet PO SCH (09:00)
[2016-11-13] MEDS: *HR* Morphine 2 MG/ML SYRINGE IVP PRN ×2 (09:56→15:28)
[2016-11-13] MEDS: Gabapentin 300 MG CAPSULE PO SCH ×3 (09:57→19:58)
[2016-11-13] MEDS: ALPRAZolam 1 MG TABLET PO SCH ×3 (09:57→19:57)
--- NOTE | 2016-11-13 15:07 | Internal Med Progress Note ---
Date of Encounter: 11/13/16 Time of Encounter: 15:07 - Assessment and plan (1) Chest pain Current Visit: Yes Status: Acute Assessment and plan: Hospitalized 07/2016 for same symptoms; was in the process of having stress test at that time when he left AMA due to emergency. Now with recurrent chest pain for 2 days prior to presentation. ASA given in ED. Serial troponins negative, EKG with moderate ST depression. Continue ASA. Stress test pending. Continue to monitor on telemetry Qualifiers: Chest pain type: unspecified Qualified Code(s): R07.9 - Chest pain, unspecified (2) MARIA DEL CARMEN (acute kidney injury) Current Visit: Yes Status: Acute Assessment and plan: Cr 1.6; baseline normal. Suspect prerenal with combined use of diuretic and ARB. Creat normalized with IV fluids. Resume home Lasix and ARB. Monitor repeat CMP. (3) Bipolar 1 disorder Current Visit: No Status: Chronic Assessment and plan: per hx. Cont home medication regimen. (4) HTN (hypertension) Current Visit: No Status: Acute Assessment and plan: per hx. Home lasix, ARB held with MARIA DEL CARMEN. Cr now improved. Will resume home medications. Qualifiers: Hypertension type: essential hypertension Qualified Code(s): I10 - Essential (primary) hypertension (5) DVT prophylaxis Current Visit: No Status: Acute Assessment and plan: heparin - Time Spent With Patient 25 - 35 minutes - Subjective Interval history: Seen and examined at bedside. Patient is new to me, information obtained from chart review and patient report. Patient just returned from stress tests, still with "some" chest pain but says not too bad. Nothing makes better or worse , no SOB. - Constitutional Vitals: Temp Pulse Resp BP Pulse Ox 97.5 F L 67 16 126/84 96 11/13/16 12:12 11/13/16 12:12 11/13/16 12:12 11/13/16 12:12 11/13/16 12:12 General appearance: Present: A&O X 3, morbidly obese, answers questions appropriately - Head Head exam: Present: atraumatic, normocephalic - Eye Eye exam: Present: PERRL, conjuntiva pink, sclera anicteric Pupils: Present: PERRL - Neck Neck exam general surgery: Present: supple, trachea midline. Absent: lymphadenopathy - Respiratory Respiratory exam: Present: CTAB. Absent: accessory muscle use, rales, rhonchi, wheezes - Cardiovascular Cardiovascular exam: Present: RRR, +S1, +S2. Absent: diastolic murmur, gallop, rubs, systolic murmur - GI/Abdominal GI/Abdominal exam: Present: normal bowel sounds, soft, no peritoneal signs. Absent: distended, tenderness - Extremities Exam Extremities exam: Present: warm, radial pulses palpable and symmetrical. Absent : calf tenderness, cyanotic, pedal edema - Neurological Exam Neurological exam: Present: CN II-XII intact, oriented X3, no focal deficits. Absent: pronater drift, facial droop, speech deficit - Skin Skin exam: Present: dry, intact Internal Medicine: Result - Labs CBC & Chem 7: 11/13/16 03:09 11/13/16 03:09 Labs: Short CBC 11/13/16 Range/Units 03:09 WBC 5.3 (4.3-11.1) K/mcL Hgb 13.1 (12.9-16.9) g/dL Hct 40.5 (37.5-50.1) % Plt Count 150 (140-400) K/mcL Neutrophils # 2.4 (1.6-8.9) K/mcL BMP 11/13/16 03:09 Sodium 141 Potassium 4.3 Chloride 108 Carbon Dioxide 27 BUN 20 Creatinine 0.95 Glucose 103 H Calcium 8.9 Cardiac Enzymes 11/12/16 11/13/16 Range/Units 22:13 03:09 Troponin I 0.00 0.01 (0-0.03) ng/mL - ABG Interpretation ABG results: PT/INR, D-dimer D-Dimer 234 ng/mLFEU (0-500) 11/12/16 16:26 Consult Discharge Plan - Plan Referrals: Miah Person DO [Primary Care Provider] -
--- NOTE | 2016-11-13 15:47 | Discharge Summary ---
Date of Encounter: 11/13/16 Time of Encounter: 15:45 - Discharge Diagnosis (1) Chest pain Status: Acute Qualifiers: Chest pain type: unspecified Qualified Code(s): R07.9 - Chest pain, unspecified (2) MARIA DEL CARMEN (acute kidney injury) Status: Acute (3) Bipolar 1 disorder Status: Chronic (4) HTN (hypertension) Status: Acute Qualifiers: Hypertension type: essential hypertension Qualified Code(s): I10 - Essential (primary) hypertension (5) DVT prophylaxis Status: Acute - Discharge Medications Home Medications: Alprazolam [Xanax] 2 mg PO TID 08/29/15 [History] Gabapentin [Neurontin] 800 mg PO QID 08/29/15 [History] Quetiapine Fumarate [SEROquel] 100 mg PO HS 08/29/15 [History] Furosemide [Lasix] 20 mg PO DAILY 08/17/16 [History] OXcarbazepine [Trileptal] 300 mg PO HS 08/17/16 [History] Potassium Chloride [K-Tab ER] 20 meq PO DAILY 08/17/16 [History] Valsartan/Hydrochlorothiazide [Diovan Hct 320-12.5 mg Tab] 1 each PO DAILY 08/17 [History] Aspirin Enteric Coated [Aspirin EC] 81 mg PO DAILY #30 tablet. 08/18/16 [Rx] Metoprolol [Lopressor] 25 mg PO BID #60 tablet 08/18/16 [Rx] Acetaminophen 650 mg PO Q6H PRN 11/12/16 [History] Allergies/Adverse Reactions: 3 Allergy/AdvReac Type Severity Reaction Status Date / Time No Known Allergies Allergy Verified 11/14/14 08:01 Procedures/tests Complete & Pending: Procedures Performed prior 72 hours Category Date Time Status NM derrick perf SPECT multi [NM] Routine Exams 11/12/16 22:14 Taken SP pharm nuclear stress Routine Y 11/13/16 07:10 Completed Date of admission: 11/12/16 18:28 Primary care physician: Sukhwinder Liang Discharging clinician: Charla Haynes Anticipated date of discharge: 11/13/16 - Patient Status Condition: Good - Discharge Instructions Follow Up With: Miah Person, [Primary Care Provider] - Hospital course: Mr. Adair is a 45 year old male - Time Spent with Patient Total time spent providing and/or coordinating discharge services: - Constitutional Vitals: Temp Pulse Resp BP Pulse Ox 98.1 F 66 16 130/86 99 11/13/16 15:19 11/13/16 15:19 11/13/16 15:19 11/13/16 15:19 11/13/16 15:19 General appearance: Present: A&O X 3, morbidly obese, answers questions appropriately
[2016-11-13 19:00] VITALS: BP 145/82
[2016-11-13] MEDS: OXcarbazepine 150 MG TABLET PO SCH (19:58)
[2016-11-13] MEDS ORDERED: *HR* Heparin 5,000 UNIT/ML VIAL SQ SCH (22:00)
[2016-11-14] MEDS ORDERED: Furosemide 20 MG TABLET PO PRN (09:00)
[2016-11-14] MEDS ORDERED: Valsartan 160 MG TABLET PO SCH (09:00)
--- NOTE | 2016-11-15 08:38 | Electrocardiograph Report ---
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
--- NOTE | 2016-11-15 10:59 | Nuclear Medicine Stress Report ---
Regadenoson Nuclear 2 day Name: Lincoln Adair Date of Study: 11/13/2016 Date: 1970 Ht: 72.0 in Medical Record#: [id number] Age: 45 Wt: 325.0 lb Gender: Male Order #: [id number] Location: [facility] Room: [facility] Supervising Provider: Arnoldo Gonzalez CNP Reading Physician: Jhony Campos DO, FACC, FASWV Ordering Physician: Charla Haynes CNP Stress Technologist: Rosalind Lynn CHISEL MORTISER OPERATOR, CCT Pinion Polisher: Matt Khan Indications: Chest Pain Impression: Pharmacologic stress ECG is negative for ischemia at level of heart rate achieved. Chest discomfort reported prior to, during, and after Lexiscan. Gated EF = 58%. Small sized, mild intensity, fixed inferior perfusion defect. Wall motion is normal. Findings are consistent with artifact. Perfusion imaging was negative for ischemia or infarct. History: Hypertension Stress Test Summary: Stress Test Type: Pharmacologic Regadenoson 0.4mg/5ml given IV Baseline Information: Initial Heart Rate: 59 Blood Pressure: 124/84 Stress Information: Test Terminated Due to (primary): As per protocol Maximum Blood Pressure: 130/82 Maximum Heart Rate: 94 Percent Maximum Heart Rate Achieved: 53 Double Product: [id number] METS Reached: 1 Symptoms: Chest pain Nuclear Summary: SPECT myocardial perfusion imaging using Tc99m Sestamibi given intravenously was performed at rest and following cardiac stress testing. The resting images were obtained following initial dose of 33 mCi. Following stress an additional dose of 35 mCi was given at peak exercise or 30 seconds post regadenoson infusion. Medication Given: Time Medication Dose Units Route Findings: Stress Note * Resting ECG demonstrated normal sinus rhythm. * No baseline arrhythmias were noted. * Pharmacologic stress ECG is negative for ischemia at level of heart rate achieved. * No arrhythmias were noted during stress. * Chest discomfort reported prior to, during, and after Lexiscan. * Normal hemodynamic responses to pharmacologic stress. Study Quality * Study quality is average. Gated EF % * Gated EF = 58%. Left Ventricle * LVEDV = 142 mL. * Normal wall motion. Inferior Perfusion Rest * The inferior segments show a mild reduction in perfusion. Inferior Perfusion Stress * The inferior segments show a mild reduction in perfusion. TID * No evidence of transient ischemic dilatation. TID ratio = 1.17. Lung Uptake * There is no evidence of increase lung uptake. Updated by Jhony Campos DO, VINITA, SCOTTY, ADELFO on 11/15/2016 10:54:18 AM electronically signed on 11/15/2016 10:55:20 AM with status of Final
== END 2016-11-13 20:15 | disposition left against medical advice (07) ==
LOC: 3BNU 12:10 → EMEROO 12:10 → 3BNU 19:02
PROVIDERS: ADMIT Nurse Practitioner Family; ATTEND Registered Nurse

== ENCOUNTER 2019-07-31 15:12 | Inpatient (IN) ==
[2019-07-31 17:39] LABS: Basophils % 0.6 %; Eosinophils # 0.3 K/mcL (0.0-0.6); Eosinophils % 4.5 %; Hemoglobin 12.9 g/dL (12.9-16.9); Immature Granulocytes % 0.6 % (0-4); Lymphocytes % 28.5 %; Mean Corpuscular HGB Conc 31.5 g/dL (31.6-35.5); Mean Corpuscular Hemoglobin 28.9 pg (28.0-33.3); Mean Corpuscular Volume 91.9 fL (83.0-100.0); Mean Platelet Volume 11.4 fL (9.4-12.4); Monocytes # 0.6 K/mcL (0.0-1.3); Platelet Count 217 K/mcL (140-400); Red Blood Count 4.46 M/mcL (4.19-5.50); Red Cell Distribution Width 14.4 % (11.5-14.5); Segmented Neutrophils % 57.8 %; White Blood Count 6.8 K/mcL (4.3-11.1)
[2019-07-31] MEDS ORDERED: Piperacillin/Tazobactam 3.375 GM in 0.9 % Sodium Chloride Mini Bag 100 ML IVPB ONE (17:50)
[2019-07-31 17:54] LABS: Alanine Aminotransferase 5 Units/L (7-52); Albumin 3.6 g/dL (3.5-5.7); Albumin/Globulin Ratio 1.3 (1.1-2.2); Alkaline Phosphatase 94 Units/L (34-104); Aspartate Amino Transferase 9 Units/L (13-39); BUN/Creatinine Ratio 15 (6-26); Bilirubin,Total 0.3 mg/dL (0.3-1.0); Blood Urea Nitrogen 13 mg/dL (6-20); Calcium 9.2 mg/dL (8.6-10.3); Carbon Dioxide 26 mEq/L (23-29); Chloride 106 mEq/L (98-107); Globulin 2.7 g/dL (2.4-3.5); Glucose 114 mg/dL (70-105); Osmolality,Calculated 287 (280-300); Potassium 4.2 mEq/L (3.5-5.1); Sodium 138 mEq/L (136-145); Total Protein 6.3 g/dL (6.4-8.9); eGFR For African Americans > 60 (> 60); eGFR For Non-African Americans > 60 (> 60)
[2019-07-31 18:13] LABS: Bilirubin,Urine Negative (Negative); Blood,Urine Negative (Negative); Clarity,Urine Cloudy (Clear); Color,Urine Yellow (Yellow); Glucose,Urine (UA) Normal (Normal); Ketones,Urine Negative (Negative); Leukocyte Esterase,Urine Large (Negative); Nitrite,Urine Positive (Negative); PH,Urine 5.5 pH Units (5.0-8.0); Protein,Urine Negative (Neg-Trace); Specific Gravity,Urine 1.022 (1.010-1.025); Urobilinogen,Urine Normal (Normal)
[2019-07-31 18:14] LABS: Bacteria,Urine Many per hpf (None-Few); Hyaline Casts,Urine Few per lpf (None-Few); RBC,Urine 0-3 per hpf (0-3); Squamous Epithelial Cell,Urine Moderate per lpf (None-Few); WBC,Urine TNTC per hpf (0-3)
[2019-07-31] MEDS ORDERED: Ertapenem 1,000 MG in 0.9 % Sodium Chloride Mini Bag 100 ML IVPB ONE (19:00)
[2019-07-31] MEDS ORDERED: *HR* HYDROcodone/Acet 5/325 mg TABLET PO STA (19:52)
[2019-07-31] MEDS ORDERED: Vancomycin 1,750 MG/517.5 ML IV.SOLN IVPB ONE (19:54)
[2019-07-31] MEDS ORDERED: Acetaminophen 325 MG TABLET PO PRN (21:59)
[2019-07-31] MEDS ORDERED: *HR* Promethazine 25 MG/ML VIAL IVP PRN (21:59)
[2019-07-31] MEDS ORDERED: Naloxone 0.4 MG/ML INJ IVP PRN (21:59)
[2019-07-31] MEDS ORDERED: *HR* OxyCODONE/APAP 10/325 TABLET PO PRN (22:01)
[2019-07-31] MEDS ORDERED: Bisacodyl 10 MG RECTAL SUPPOSITORY RC PRN (22:01)
[2019-07-31] MEDS: 0.9 % Sodium Chloride 1,000 ML IVC SCH (22:35)
[2019-07-31] MEDS: *HR* Heparin 5,000 UNIT/ML VIAL SQ SCH (22:36)
[2019-08-01] MEDS ORDERED: QUEtiapine Fumarate 100 MG TABLET PO ONE (01:22)
[2019-08-01] MEDS ORDERED: OXcarbazepine 150 MG TABLET PO SCH ×2 (01:30→01:45)
[2019-08-01 03:51] LABS: Basophils % 0.6 %; Eosinophils # 0.3 K/mcL (0.0-0.6); Eosinophils % 4.5 %; Hematocrit 36.8 % (37.5-50.1); Hemoglobin 11.6 g/dL (12.9-16.9); Immature Granulocytes % 0.3 % (0-4); Lymphocytes # 2.2 K/mcL (0.6-4.6); Lymphocytes % 33.9 %; Mean Corpuscular HGB Conc 31.5 g/dL (31.6-35.5); Mean Corpuscular Hemoglobin 29.3 pg (28.0-33.3); Mean Corpuscular Volume 92.9 fL (83.0-100.0); Mean Platelet Volume 10.9 fL (9.4-12.4); Monocytes # 0.5 K/mcL (0.0-1.3); Neutrophils # 3.4 K/mcL (1.6-8.9); Platelet Count 184 K/mcL (140-400); Red Blood Count 3.96 M/mcL (4.19-5.50); Red Cell Distribution Width 14.3 % (11.5-14.5); Segmented Neutrophils % 52.7 %; White Blood Count 6.5 K/mcL (4.3-11.1)
[2019-08-01 04:10] LABS: BUN/Creatinine Ratio 15 (6-26); Blood Urea Nitrogen 13 mg/dL (6-20); Calcium 8.5 mg/dL (8.6-10.3); Carbon Dioxide 28 mEq/L (23-29); Chloride 109 mEq/L (98-107); Glucose 93 mg/dL (70-105); Magnesium 1.7 mg/dL (1.6-2.6); Osmolality,Calculated 290 (280-300); Phosphorous 3.6 mg/dL (2.7-4.5); Potassium 4.3 mEq/L (3.5-5.1); Sodium 140 mEq/L (136-145); eGFR For African Americans > 60 (> 60); eGFR For Non-African Americans > 60 (> 60)
[2019-08-01] MEDS: *HR* Heparin 5,000 UNIT/ML VIAL SQ SCH ×2 (05:33→12:02)
[2019-08-01] MEDS: Gabapentin 400 MG CAPSULE PO SCH ×3 (08:34→18:14)
[2019-08-01] MEDS: 0.9 % Sodium Chloride 1,000 ML IVC SCH (12:01)
[2019-08-01 16:23] VITALS: BP 127/78
[2019-08-01] MEDS ORDERED: QUEtiapine Fumarate 100 MG TABLET PO SCH (21:00)
[2019-08-02] MEDS ORDERED: hydroCHLOROthiazide 25 MG TABLET PO SCH (09:00)
[2019-08-02] MEDS ORDERED: Ertapenem 1,000 MG in 0.9 % Sodium Chloride Mini Bag 100 ML IVPB SCH (09:00)
== END 2019-08-01 19:15 | disposition left against medical advice (07) | DRG 690 ==
LOC: 3BNU 15:12 → EMEROOARM 15:12 → 3BNU 21:01
PROVIDERS: ADMIT Internal Medicine; ATTEND Internal Medicine

== ENCOUNTER 2019-10-20 18:01 | Inpatient (IN) ==
[2019-10-20 18:32] LABS: Immature Granulocytes % 0.4 % (0-4); Platelet Count 160 K/mcL (140-400)
[2019-10-20 18:34] LABS: Basophils % 0.3 %; Hemoglobin 14.8 g/dL (12.9-16.9); Immature Platelets 9.1 % (1.1-6.1); Lymphocytes # 0.6 K/mcL (0.6-4.6); Lymphocytes % 5.6 %; Mean Corpuscular HGB Conc 32.9 g/dL (31.6-35.5); Mean Corpuscular Hemoglobin 28.6 pg (28.0-33.3); Mean Platelet Volume 11.8 fL (9.4-12.4); Monocytes # 0.7 K/mcL (0.0-1.3); Monocytes % 6.5 %; Neutrophils # 9.8 K/mcL (1.6-8.9); Red Blood Count 5.17 M/mcL (4.19-5.50); Red Cell Distribution Width 13.2 % (11.5-14.5); Segmented Neutrophils % 87.2 %; White Blood Count 11.2 K/mcL (4.3-11.1)
[2019-10-20 18:50] LABS: Alanine Aminotransferase 8 Units/L (7-52); Albumin 4.2 g/dL (3.5-5.7); Albumin/Globulin Ratio 1.7 (1.1-2.2); Alkaline Phosphatase 92 Units/L (34-104); Aspartate Amino Transferase 15 Units/L (13-39); BUN/Creatinine Ratio 25 (6-26); Bilirubin,Total 1.4 mg/dL (0.3-1.0); Blood Urea Nitrogen 23 mg/dL (6-20); Calcium 9.7 mg/dL (8.6-10.3); Carbon Dioxide 24 mEq/L (23-29); Chloride 98 mEq/L (98-107); Globulin 2.5 g/dL (2.4-3.5); Glucose 127 mg/dL (70-105); Osmolality,Calculated 279 (280-300); Potassium 3.9 mEq/L (3.5-5.1); Sodium 132 mEq/L (136-145); Total Protein 6.7 g/dL (6.4-8.9); eGFR For African Americans > 60 (> 60); eGFR For Non-African Americans > 60 (> 60)
[2019-10-20 18:53] LABS: Bacteria,Urine Moderate per hpf (None-Few); Bilirubin,Urine Negative (Negative); Blood,Urine Trace (Negative); Clarity,Urine Clear (Clear); Color,Urine Yellow (Yellow); Glucose,Urine (UA) Normal (Normal); Ketones,Urine Negative (Negative); Leukocyte Esterase,Urine Large (Negative); Mucus,Urine Few per lpf (None-Few); Nitrite,Urine Negative (Negative); Protein,Urine Trace mg/dL (Neg-Trace); Specific Gravity,Urine 1.026 (1.010-1.025); Squamous Epithelial Cell,Urine Few per hpf (None-Few); WBC,Urine 50-100 per hpf (0-3)
[2019-10-20 19:01] LABS: Platelet Clumps Few (Not Present)
[2019-10-20] MEDS ORDERED: *HR* HYDROmorphone (PF) 1 MG/ML SYRINGE IVP ONE (20:09)
[2019-10-20] MEDS ORDERED: Ondansetron 4 MG/2 ML VIAL IVP ONE (20:09)
[2019-10-20] MEDS ORDERED: levoFLOXacin 750 MG/150 ML 750 MG/150 ML BAG IVPB ONE (20:59)
[2019-10-20] MEDS ORDERED: MetroNIDAZOLE 500 MG/100 ML 500 MG/100 ML BAG IVPB ONE (20:59)
[2019-10-20] MEDS ORDERED: cefTRIAXone 1,000 MG in 0.9 % Sodium Chloride Mini Bag 100 ML IVPB ONE (21:01)
[2019-10-20] MEDS ORDERED: Naloxone 0.4 MG/ML INJ IVP PRN (22:19)
[2019-10-20] MEDS ORDERED: *HR* Promethazine 25 MG/ML VIAL IVP PRN (22:19)
[2019-10-20] MEDS ORDERED: QUEtiapine Fumarate 100 MG TABLET PO SCH (22:30)
[2019-10-20] MEDS ORDERED: OXcarbazepine 150 MG TABLET PO SCH (22:30)
[2019-10-20] MEDS ORDERED: Acetaminophen 325 MG TABLET PO PRN (23:11)
[2019-10-20] MEDS ORDERED: Ketorolac 15 MG/ML VIAL IVP ONE (23:11)
[2019-10-21] MEDS: Ringers Solution, Lactated 1,000 ML IVC SCH ×2 (00:29→09:56)
[2019-10-21] MEDS ORDERED: *HR* HYDROmorphone (PF) 1 MG/ML SYRINGE IVP ONE (00:43)
[2019-10-21] MEDS ORDERED: *HR* Enoxaparin 40 MG/0.4 ML SYRINGE SQ SCH (06:00)
[2019-10-21] MEDS ORDERED: Piperacillin/Tazobactam 3.375 GM in 0.9 % Sodium Chloride Mini Bag 100 ML IVPB SCH (08:00)
[2019-10-21] MEDS ORDERED: 0.9 % Sodium Chloride 1,000 ML IVC ONE ×2 (08:29→11:03)
[2019-10-21] MEDS ORDERED: 0.9 % Sodium Chloride 1,000 ML ONE (08:31)
[2019-10-21] MEDS ORDERED: Ketorolac 30 MG/ML VIAL IVP PRN (08:51)
[2019-10-21] MEDS ORDERED: Cholecalciferol (D-3) 1,000 UNIT (25MCG) TABLET PO SCH (09:00)
[2019-10-21] MEDS ORDERED: Vancomycin 1,750 MG in 0.9 % Sodium Chloride 250 ML IVPB SCH (09:00)
[2019-10-21] MEDS ORDERED: Ertapenem 1,000 MG in 0.9 % Sodium Chloride Mini Bag 100 ML IVPB SCH (09:00)
[2019-10-21] MEDS ORDERED: Acetaminophen IV 1,000 MG/100 ML INFUS..BTL IVPB ONE (09:01)
[2019-10-21] MEDS ORDERED: Vancomycin 2,000 MG/520 ML IV.SOLN IVPB ONE (09:30)
[2019-10-21 09:37] LABS: Basophils % 0.2 %; Hematocrit 39.1 % (37.5-50.1); Immature Granulocytes % 0.5 % (0-4); Mean Corpuscular Hemoglobin 28.6 pg (28.0-33.3); Mean Corpuscular Volume 89.5 fL (83.0-100.0); Mean Platelet Volume 11.5 fL (9.4-12.4); Monocytes # 0.9 K/mcL (0.0-1.3); Monocytes % 7.3 %; Neutrophils # 10.2 K/mcL (1.6-8.9); Platelet Count 164 K/mcL (140-400); Red Blood Count 4.37 M/mcL (4.19-5.50); Red Cell Distribution Width 13.5 % (11.5-14.5); White Blood Count 12.1 K/mcL (4.3-11.1)
[2019-10-21 09:38] LABS: Hemoglobin 12.5 g/dL (12.9-16.9)
[2019-10-21 09:46] LABS: INR 1.4; Prothrombin Time 15.7 Seconds (9.4-12.1)
[2019-10-21] MEDS: Gabapentin 400 MG CAPSULE PO SCH ×2 (09:51→12:47)
[2019-10-21 09:58] LABS: Albumin 3.5 g/dL (3.5-5.7); Albumin/Globulin Ratio 1.3 (1.1-2.2); Bilirubin,Total 1.4 mg/dL (0.3-1.0); Calcium 8.7 mg/dL (8.6-10.3); Globulin 2.6 g/dL (2.4-3.5); Magnesium 1.4 mg/dL (1.6-2.6); Phosphorous 2.5 mg/dL (2.7-4.5); Potassium 3.8 mEq/L (3.5-5.1); Total Protein 6.1 g/dL (6.4-8.9)
[2019-10-21] MEDS ORDERED: 0.9 % Sodium Chloride 1,000 ML IVC SCH ×2 (14:00→19:18)
[2019-10-21] MEDS ORDERED: Orphenadrine 60 MG/2 ML VIAL IVP ONE (16:17)
[2019-10-21] MEDS ORDERED: Naloxone 0.4 MG/ML INJ IVP PRN (19:18)
[2019-10-21] MEDS ORDERED: *HR* Promethazine 25 MG/ML VIAL IVP PRN (19:18)
[2019-10-21] MEDS ORDERED: Acetaminophen 325 MG TABLET PO PRN (19:18)
[2019-10-21] MEDS: OXcarbazepine 150 MG TABLET PO SCH (20:07)
[2019-10-21] MEDS: QUEtiapine Fumarate 100 MG TABLET PO SCH (20:07)
[2019-10-21] MEDS ORDERED: Sennosides/Docusate Sodium TABLET PO SCH ×2 (21:00)
[2019-10-21] MEDS ORDERED: Lactulose Oral Soln 20 GM/30 ML UDC PO SCH ×2 (21:00)
[2019-10-21] MEDS ORDERED: Vancomycin 1,750 MG/517.5 ML IV.SOLN IVPB SCH (22:00)
[2019-10-22] MEDS ORDERED: 0.9 % Sodium Chloride 1,000 ML IVC ONE ×2 (02:06→03:27)
[2019-10-22] MEDS ORDERED: 0.9 % Sodium Chloride 1,000 ML IVC SCH (02:35)
[2019-10-22 04:06] LABS: Eosinophils % 0.1 %; Lymphocytes % 14.6 %; Mean Platelet Volume 11.2 fL (9.4-12.4)
[2019-10-22 04:08] LABS: Basophils % 0.2 %; Hematocrit 32.7 % (37.5-50.1); Hemoglobin 10.6 g/dL (12.9-16.9); Immature Granulocytes % 0.2 % (0-4); Immature Platelets 5.6 % (1.1-6.1); Lymphocytes # 1.3 K/mcL (0.6-4.6); Mean Corpuscular HGB Conc 32.4 g/dL (31.6-35.5); Mean Corpuscular Hemoglobin 29.2 pg (28.0-33.3); Mean Corpuscular Volume 90.1 fL (83.0-100.0); Monocytes # 0.8 K/mcL (0.0-1.3); Monocytes % 8.9 %; Neutrophils # 6.7 K/mcL (1.6-8.9); Platelet Count 119 K/mcL (140-400); Red Blood Count 3.63 M/mcL (4.19-5.50); Red Cell Distribution Width 13.4 % (11.5-14.5); White Blood Count 8.8 K/mcL (4.3-11.1)
[2019-10-22 04:25] LABS: BUN/Creatinine Ratio 19 (6-26); Blood Urea Nitrogen 22 mg/dL (6-20); Calcium 7.6 mg/dL (8.6-10.3); Carbon Dioxide 21 mEq/L (23-29); Chloride 106 mEq/L (98-107); Glucose 119 mg/dL (70-105); Magnesium 1.8 mg/dL (1.6-2.6); Osmolality,Calculated 280 (280-300); Potassium 3.6 mEq/L (3.5-5.1); Sodium 133 mEq/L (136-145); eGFR For African Americans > 60 (> 60); eGFR For Non-African Americans > 60 (> 60)
[2019-10-22] MEDS: Norepinephrine 4 MG/254 ML IV.SOLN IVC SCH (04:39)
[2019-10-22 04:42] LABS: Platelet Estimate Slight Decrease (Normal)
[2019-10-22] MEDS: 0.9 % Sodium Chloride 1,000 ML IVC SCH ×2 (04:47→15:48)
[2019-10-22] MEDS: *HR* Enoxaparin 40 MG/0.4 ML SYRINGE SQ SCH (04:47)
[2019-10-22] MEDS: Cholecalciferol (D-3) 1,000 UNIT (25MCG) TABLET PO SCH (09:35)
[2019-10-22] MEDS: Ertapenem 1,000 MG in 0.9 % Sodium Chloride Mini Bag 100 ML IVPB SCH (09:35)
[2019-10-22] MEDS: *HR* HYDROmorphone (PF) 1 MG/ML SYRINGE IVP PRN ×4 (09:39→23:53)
[2019-10-22] MEDS: OXcarbazepine 150 MG TABLET PO SCH (19:45)
[2019-10-22] MEDS: QUEtiapine Fumarate 100 MG TABLET PO SCH (19:45)
[2019-10-23] MEDS: 0.9 % Sodium Chloride 1,000 ML IVC SCH ×3 (00:50→20:20)
[2019-10-23] MEDS: Simethicone 80 MG TAB.CHEW PO PRN ×3 (02:12→20:26)
[2019-10-23 02:57] LABS: VBG Ionized Calcium 1.05 mmol/L (1.15-1.35)
[2019-10-23 02:59] LABS: Basophils % 0.3 %; Eosinophils % 0.3 %; Hematocrit 30.1 % (37.5-50.1); Hemoglobin 9.8 g/dL (12.9-16.9); Immature Granulocytes % 0.6 % (0-4); Immature Platelets 6.7 % (1.1-6.1); Lymphocytes # 1.1 K/mcL (0.6-4.6); Lymphocytes % 15.5 %; Mean Corpuscular HGB Conc 32.6 g/dL (31.6-35.5); Mean Corpuscular Volume 89.1 fL (83.0-100.0); Mean Platelet Volume 11.6 fL (9.4-12.4); Monocytes # 0.5 K/mcL (0.0-1.3); Monocytes % 7.5 %; Neutrophils # 5.4 K/mcL (1.6-8.9); Platelet Count 105 K/mcL (140-400); Red Blood Count 3.38 M/mcL (4.19-5.50); Red Cell Distribution Width 13.4 % (11.5-14.5); Segmented Neutrophils % 75.8 %; White Blood Count 7.1 K/mcL (4.3-11.1)
[2019-10-23 03:04] LABS: Magnesium 1.6 mg/dL (1.6-2.6); Phosphorous 1.9 mg/dL (2.7-4.5)
[2019-10-23] MEDS: Norepinephrine 4 MG/254 ML IV.SOLN IVC SCH (04:07)
[2019-10-23] MEDS: *HR* HYDROmorphone (PF) 1 MG/ML SYRINGE IVP PRN ×4 (04:10→22:03)
[2019-10-23 04:39] LABS: BUN/Creatinine Ratio 13 (6-26); Blood Urea Nitrogen 9 mg/dL (6-20); Calcium 7.8 mg/dL (8.6-10.3); Carbon Dioxide 21 mEq/L (23-29); Chloride 106 mEq/L (98-107); Glucose 108 mg/dL (70-105); Osmolality,Calculated 277 (280-300); Potassium 3.3 mEq/L (3.5-5.1); Sodium 134 mEq/L (136-145); eGFR For African Americans > 60 (> 60); eGFR For Non-African Americans > 60 (> 60)
[2019-10-23] MEDS: *HR* Enoxaparin 40 MG/0.4 ML SYRINGE SQ SCH (05:18)
[2019-10-23] MEDS ORDERED: Potassium Phosphate 44 MEQ in 0.9 % Sodium Chloride 250 ML IVPB ONE (05:35)
[2019-10-23] MEDS: Calcium Gluconate 1gm/50mL 1 GM/50 ML BAG IVPB SCH ×2 (05:55→06:53)
[2019-10-23] MEDS: Cholecalciferol (D-3) 1,000 UNIT (25MCG) TABLET PO SCH (09:27)
[2019-10-23] MEDS: Ertapenem 1,000 MG in 0.9 % Sodium Chloride Mini Bag 100 ML IVPB SCH (09:27)
[2019-10-23] MEDS ORDERED: Vancomycin 2,000 MG/520 ML IV.SOLN IVPB ONE (10:02)
[2019-10-23] MEDS ORDERED: Isovue-370 500 ML BOTTLE IVP ONE (15:17)
[2019-10-23] MEDS ORDERED: Isovue-370 500 ML BOTTLE PO ONE (15:26)
[2019-10-23] MEDS: QUEtiapine Fumarate 100 MG TABLET PO SCH (20:19)
[2019-10-23] MEDS: OXcarbazepine 150 MG TABLET PO SCH (20:19)
[2019-10-24] MEDS: Norepinephrine 4 MG/254 ML IV.SOLN IVC SCH (00:07)
[2019-10-24] MEDS: 0.9 % Sodium Chloride 1,000 ML IVC SCH (00:29)
[2019-10-24] MEDS: *HR* HYDROmorphone (PF) 1 MG/ML SYRINGE IVP PRN (03:34)
[2019-10-24] MEDS: Simethicone 80 MG TAB.CHEW PO PRN ×2 (03:34→20:59)
[2019-10-24 04:42] LABS: Basophils % 0.2 %; Immature Granulocytes % 0.2 % (0-4)
[2019-10-24 04:44] LABS: Eosinophils # 0.1 K/mcL (0.0-0.6); Eosinophils % 1.4 %; Hematocrit 30.8 % (37.5-50.1); Hemoglobin 10.2 g/dL (12.9-16.9); Immature Platelets 7.3 % (1.1-6.1); Lymphocytes # 0.7 K/mcL (0.6-4.6); Lymphocytes % 11.5 %; Mean Corpuscular HGB Conc 33.1 g/dL (31.6-35.5); Mean Corpuscular Hemoglobin 29.1 pg (28.0-33.3); Mean Platelet Volume 11.1 fL (9.4-12.4); Monocytes # 0.5 K/mcL (0.0-1.3); Monocytes % 8.3 %; Platelet Count 114 K/mcL (140-400); Red Cell Distribution Width 13.3 % (11.5-14.5); Segmented Neutrophils % 78.4 %; White Blood Count 5.7 K/mcL (4.3-11.1)
[2019-10-24 04:47] LABS: Neutrophils # 4.5 K/mcL (1.6-8.9)
[2019-10-24 04:48] LABS: VBG Ionized Calcium 1.14 mmol/L (1.15-1.35)
[2019-10-24 05:01] LABS: BUN/Creatinine Ratio 10 (6-26); Blood Urea Nitrogen 5 mg/dL (6-20); Calcium 7.9 mg/dL (8.6-10.3); Carbon Dioxide 23 mEq/L (23-29); Chloride 107 mEq/L (98-107); Glucose 103 mg/dL (70-105); Magnesium 1.4 mg/dL (1.6-2.6); Osmolality,Calculated 280 (280-300); Phosphorous 2.2 mg/dL (2.7-4.5); Potassium 3.1 mEq/L (3.5-5.1); Sodium 136 mEq/L (136-145); eGFR For African Americans > 60 (> 60); eGFR For Non-African Americans > 60 (> 60)
[2019-10-24] MEDS: *HR* Enoxaparin 40 MG/0.4 ML SYRINGE SQ SCH (05:40)
[2019-10-24] MEDS ORDERED: Potassium Chloride 40 MEQ in D5% in 0.9% NACL 1,000 ML IVC SCH (07:00)
[2019-10-24] MEDS: Ertapenem 1,000 MG in 0.9 % Sodium Chloride Mini Bag 100 ML IVPB SCH (09:03)
[2019-10-24] MEDS: Cholecalciferol (D-3) 1,000 UNIT (25MCG) TABLET PO SCH (09:04)
[2019-10-24] MEDS ORDERED: Simethicone 80 MG TAB.CHEW PO PRN (09:11)
[2019-10-24] MEDS ORDERED: Dextrose Gel 15 GM/37.5 ML TUBE PO PRN ×4 (10:44→11:15)
[2019-10-24] MEDS ORDERED: *HR* Dextrose 50 % in Water (Vial) 50 ML VIAL IVP PRN ×2 (10:44→11:15)
[2019-10-24] MEDS ORDERED: D5% in Water 1,000 ML IVC PRN ×2 (10:44→11:15)
[2019-10-24 10:56] LABS: Triglycerides 90 mg/dL (< 150)
[2019-10-24] MEDS ORDERED: Naloxone 0.4 MG/ML INJ IVP PRN (11:15)
[2019-10-24] MEDS ORDERED: Lidocaine -MPF 1% 5 ML AMPUL INFILT ONE (11:39)
[2019-10-24] MEDS ORDERED: Vancomycin 1,750 MG/517.5 ML IV.SOLN IVPB SCH ×2 (12:00)
[2019-10-24] MEDS ORDERED: Insulin LISPRO 300 UNITS/3 ML VIAL SQ SCH (12:00)
[2019-10-24] MEDS ORDERED: D10% in Water 500 ML IVC PRN (12:01)
[2019-10-24] MEDS: *HR* Promethazine 25 MG/ML VIAL IVP PRN ×2 (12:05→18:12)
[2019-10-24] MEDS: Potassium Chloride 40 MEQ in D5% in 0.9% NACL 1,000 ML IVC SCH ×2 (12:16→20:59)
[2019-10-24] MEDS: Insulin LISPRO 300 UNITS/3 ML VIAL SQ SCH ×3 (12:17→20:09)
[2019-10-24] MEDS ORDERED: Clinimix E 5%-15% SOLUTION 2,000 ML with MVI, adult with vitamin K 10 ML IVC SCH (17:00)
[2019-10-24] MEDS: Meropenem 1,000 MG in 0.9 % Sodium Chloride Mini Bag 100 ML IVPB SCH (17:41)
[2019-10-24] MEDS: Acetaminophen 325 MG TABLET PO PRN (20:01)
[2019-10-24] MEDS: OXcarbazepine 150 MG TABLET PO SCH (20:01)
[2019-10-24] MEDS: QUEtiapine Fumarate 100 MG TABLET PO SCH (20:59)
[2019-10-25] MEDS: Insulin LISPRO 300 UNITS/3 ML VIAL SQ SCH ×6 (00:02→20:29)
[2019-10-25] MEDS: Meropenem 1,000 MG in 0.9 % Sodium Chloride Mini Bag 100 ML IVPB SCH ×3 (00:03→16:20)
[2019-10-25] MEDS: *HR* Promethazine 25 MG/ML VIAL IVP PRN ×4 (00:18→21:09)
[2019-10-25 04:45] LABS: Basophils % 0.2 %; Hematocrit 30.1 % (37.5-50.1); Mean Corpuscular Volume 88.5 fL (83.0-100.0); Mean Platelet Volume 11.1 fL (9.4-12.4); Red Cell Distribution Width 13.3 % (11.5-14.5)
[2019-10-25 04:47] LABS: VBG Ionized Calcium 1.15 mmol/L (1.15-1.35)
[2019-10-25 04:47] LABS: Eosinophils # 0.1 K/mcL (0.0-0.6); Hemoglobin 9.6 g/dL (12.9-16.9); Immature Granulocytes % 0.4 % (0-4); Lymphocytes % 21.7 %; Mean Corpuscular HGB Conc 31.9 g/dL (31.6-35.5); Mean Corpuscular Hemoglobin 28.2 pg (28.0-33.3); Monocytes # 0.4 K/mcL (0.0-1.3); Monocytes % 9.3 %; Neutrophils # 3.1 K/mcL (1.6-8.9); Platelet Count 134 K/mcL (140-400); Segmented Neutrophils % 65.4 %; White Blood Count 4.7 K/mcL (4.3-11.1)
[2019-10-25 05:00] LABS: Alanine Aminotransferase 11 Units/L (7-52); Albumin 2.5 g/dL (3.5-5.7); Albumin/Globulin Ratio 1.1 (1.1-2.2); Alkaline Phosphatase 40 Units/L (34-104); Aspartate Amino Transferase 12 Units/L (13-39); BUN/Creatinine Ratio 10 (6-26); Bilirubin,Total 0.3 mg/dL (0.3-1.0); Blood Urea Nitrogen 5 mg/dL (6-20); Calcium 7.8 mg/dL (8.6-10.3); Carbon Dioxide 25 mEq/L (23-29); Chloride 112 mEq/L (98-107); Globulin 2.2 g/dL (2.4-3.5); Glucose 123 mg/dL (70-105); Magnesium 1.5 mg/dL (1.6-2.6); Osmolality,Calculated 287 (280-300); Phosphorous 2.7 mg/dL (2.7-4.5); Potassium 3.3 mEq/L (3.5-5.1); Sodium 139 mEq/L (136-145); Total Protein 4.7 g/dL (6.4-8.9); eGFR For African Americans > 60 (> 60); eGFR For Non-African Americans > 60 (> 60)
[2019-10-25] MEDS: *HR* Enoxaparin 40 MG/0.4 ML SYRINGE SQ SCH (06:12)
[2019-10-25] MEDS: Simethicone 80 MG TAB.CHEW PO PRN ×3 (08:20→21:33)
[2019-10-25] MEDS: Acetaminophen 325 MG TABLET PO PRN ×2 (08:20→14:56)
[2019-10-25] MEDS ORDERED: Ertapenem 1,000 MG in 0.9 % Sodium Chloride Mini Bag 100 ML IVPB SCH (09:00)
[2019-10-25] MEDS: Potassium Chloride 40 MEQ in D5% in 0.9% NACL 1,000 ML IVC SCH (09:09)
[2019-10-25] MEDS: 0.9 % Sodium Chloride 1,000 ML IVC SCH (13:44)
[2019-10-25] MEDS ORDERED: Clinimix E 5%-15% SOLUTION 2,000 ML with MVI, adult with vitamin K 10 ML IVC SCH (17:00)
[2019-10-25] MEDS: OXcarbazepine 150 MG TABLET PO SCH (20:36)
[2019-10-25] MEDS: QUEtiapine Fumarate 100 MG TABLET PO SCH (20:36)
[2019-10-26] MEDS: Insulin LISPRO 300 UNITS/3 ML VIAL SQ SCH ×6 (00:29→20:33)
[2019-10-26] MEDS: Meropenem 1,000 MG in 0.9 % Sodium Chloride Mini Bag 100 ML IVPB SCH ×3 (00:49→16:35)
[2019-10-26] MEDS: *HR* Promethazine 25 MG/ML VIAL IVP PRN ×2 (04:24→15:19)
[2019-10-26] MEDS: *HR* Enoxaparin 40 MG/0.4 ML SYRINGE SQ SCH (04:26)
[2019-10-26] MEDS: Acetaminophen 325 MG TABLET PO PRN ×2 (04:26→10:27)
[2019-10-26] MEDS: Simethicone 80 MG TAB.CHEW PO PRN ×2 (04:28→10:27)
[2019-10-26] MEDS: 0.9 % Sodium Chloride 1,000 ML IVC SCH (04:35)
[2019-10-26 04:51] LABS: BUN/Creatinine Ratio 7 (6-26); Blood Urea Nitrogen 4 mg/dL (6-20); Calcium 7.9 mg/dL (8.6-10.3); Carbon Dioxide 28 mEq/L (23-29); Chloride 107 mEq/L (98-107); Glucose 116 mg/dL (70-105); Magnesium 1.6 mg/dL (1.6-2.6); Osmolality,Calculated 288 (280-300); Phosphorous 2.9 mg/dL (2.7-4.5); Potassium 3.4 mEq/L (3.5-5.1); Sodium 140 mEq/L (136-145); eGFR For African Americans > 60 (> 60); eGFR For Non-African Americans > 60 (> 60)
[2019-10-26] MEDS ORDERED: Acetaminophen IV 1,000 MG/100 ML INFUS..BTL IVPB ONE (14:18)
[2019-10-26] MEDS ORDERED: Acetaminophen 325 MG TABLET PO PRN (14:31)
[2019-10-26] MEDS ORDERED: Clinimix E 5%-15% SOLUTION 2,000 ML with MVI, adult with vitamin K 10 ML IVC SCH (17:00)
[2019-10-26] MEDS: QUEtiapine Fumarate 100 MG TABLET PO SCH (20:23)
[2019-10-26] MEDS: OXcarbazepine 150 MG TABLET PO SCH (20:23)
[2019-10-27] MEDS: Meropenem 1,000 MG in 0.9 % Sodium Chloride Mini Bag 100 ML IVPB SCH ×3 (01:50→15:54)
[2019-10-27] MEDS: 0.9 % Sodium Chloride 1,000 ML IVC SCH ×2 (01:50→20:36)
[2019-10-27] MEDS: Insulin LISPRO 300 UNITS/3 ML VIAL SQ SCH ×6 (01:50→20:28)
[2019-10-27] MEDS: *HR* Enoxaparin 40 MG/0.4 ML SYRINGE SQ SCH (06:31)
[2019-10-27] MEDS: *HR* Promethazine 25 MG/ML VIAL IVP PRN ×2 (06:38→20:24)
[2019-10-27] MEDS: Simethicone 80 MG TAB.CHEW PO PRN ×2 (12:55→20:35)
[2019-10-27 15:11] LABS: Basophils % 0.8 %; Eosinophils # 0.2 K/mcL (0.0-0.6); Eosinophils % 3.8 %; Hematocrit 36.2 % (37.5-50.1); Immature Granulocytes % 5.3 % (0-4); Mean Corpuscular HGB Conc 33.4 g/dL (31.6-35.5); Mean Corpuscular Hemoglobin 29.5 pg (28.0-33.3); Mean Corpuscular Volume 88.3 fL (83.0-100.0); Monocytes # 0.6 K/mcL (0.0-1.3); Monocytes % 11.3 %; Nucleated Red Blood Cells 0.6 /100 WBC (0); Platelet Count 165 K/mcL (140-400); Red Cell Distribution Width 13.4 % (11.5-14.5); Segmented Neutrophils % 58.8 %; White Blood Count 5.1 K/mcL (4.3-11.1)
[2019-10-27 15:14] LABS: Hemoglobin 12.1 g/dL (12.9-16.9)
[2019-10-27 15:25] LABS: BUN/Creatinine Ratio 17 (6-26); Blood Urea Nitrogen 9 mg/dL (6-20); Calcium 8.2 mg/dL (8.6-10.3); Carbon Dioxide 28 mEq/L (23-29); Chloride 106 mEq/L (98-107); Glucose 108 mg/dL (70-105); Magnesium 1.8 mg/dL (1.6-2.6); Osmolality,Calculated 291 (280-300); Phosphorous 3.4 mg/dL (2.7-4.5); Sodium 141 mEq/L (136-145); eGFR For African Americans > 60 (> 60); eGFR For Non-African Americans > 60 (> 60)
[2019-10-27 15:39] LABS: Platelet Estimate Normal (Normal)
[2019-10-27] MEDS ORDERED: Clinimix E 5%-15% SOLUTION 2,000 ML with MVI, adult with vitamin K 10 ML IVC SCH (17:00)
[2019-10-27] MEDS: OXcarbazepine 150 MG TABLET PO SCH (20:18)
[2019-10-27] MEDS: QUEtiapine Fumarate 100 MG TABLET PO SCH (20:18)
[2019-10-28] MEDS: Meropenem 1,000 MG in 0.9 % Sodium Chloride Mini Bag 100 ML IVPB SCH ×4 (00:02→23:55)
[2019-10-28] MEDS: Insulin LISPRO 300 UNITS/3 ML VIAL SQ SCH ×5 (00:51→16:49)
[2019-10-28 01:02] LABS: Basophils % 0.7 %; Eosinophils # 0.2 K/mcL (0.0-0.6); Eosinophils % 4.2 %; Hematocrit 33.4 % (37.5-50.1); Hemoglobin 10.8 g/dL (12.9-16.9); Immature Granulocytes % 3.1 % (0-4); Lymphocytes # 1.5 K/mcL (0.6-4.6); Lymphocytes % 27.6 %; Mean Corpuscular HGB Conc 32.3 g/dL (31.6-35.5); Mean Corpuscular Hemoglobin 28.9 pg (28.0-33.3); Mean Corpuscular Volume 89.3 fL (83.0-100.0); Mean Platelet Volume 10.5 fL (9.4-12.4); Monocytes # 0.6 K/mcL (0.0-1.3); Nucleated Red Blood Cells 0.4 /100 WBC (0); Platelet Count 194 K/mcL (140-400); Red Blood Count 3.74 M/mcL (4.19-5.50); Red Cell Distribution Width 13.7 % (11.5-14.5); Segmented Neutrophils % 53.4 %; White Blood Count 5.5 K/mcL (4.3-11.1)
[2019-10-28 01:18] LABS: Magnesium 1.7 mg/dL (1.6-2.6); Phosphorous 3.1 mg/dL (2.7-4.5)
[2019-10-28 01:19] LABS: BUN/Creatinine Ratio 17 (6-26); Blood Urea Nitrogen 11 mg/dL (6-20); Calcium 7.8 mg/dL (8.6-10.3); Carbon Dioxide 27 mEq/L (23-29); Chloride 108 mEq/L (98-107); Glucose 113 mg/dL (70-105); Osmolality,Calculated 286 (280-300); Potassium 3.8 mEq/L (3.5-5.1); Sodium 138 mEq/L (136-145); eGFR For African Americans > 60 (> 60); eGFR For Non-African Americans > 60 (> 60)
[2019-10-28] MEDS: *HR* Enoxaparin 40 MG/0.4 ML SYRINGE SQ SCH (06:04)
[2019-10-28] MEDS: *HR* Promethazine 25 MG/ML VIAL IVP PRN ×3 (07:48→21:22)
[2019-10-28] MEDS: Simethicone 80 MG TAB.CHEW PO PRN ×2 (14:22→21:14)
[2019-10-28] MEDS: 0.9 % Sodium Chloride 1,000 ML IVC SCH (16:45)
[2019-10-28] MEDS ORDERED: Clinimix E 5%-15% SOLUTION 2,000 ML with MVI, adult with vitamin K 10 ML IVC SCH (17:00)
[2019-10-28] MEDS: QUEtiapine Fumarate 100 MG TABLET PO SCH (21:14)
[2019-10-28] MEDS: OXcarbazepine 150 MG TABLET PO SCH (21:14)
[2019-10-29] MEDS: *HR* Promethazine 25 MG/ML VIAL IVP PRN ×2 (03:35→09:38)
[2019-10-29 03:59] LABS: Basophils # 0.1 K/mcL (0.0-0.2); Basophils % 0.7 %; Eosinophils # 0.3 K/mcL (0.0-0.6); Hemoglobin 10.8 g/dL (12.9-16.9); Immature Granulocytes % 3.4 % (0-4); Lymphocytes # 1.8 K/mcL (0.6-4.6); Mean Corpuscular HGB Conc 31.8 g/dL (31.6-35.5); Mean Corpuscular Hemoglobin 28.6 pg (28.0-33.3); Mean Corpuscular Volume 90.2 fL (83.0-100.0); Mean Platelet Volume 9.9 fL (9.4-12.4); Monocytes # 0.6 K/mcL (0.0-1.3); Monocytes % 8.6 %; Neutrophils # 3.8 K/mcL (1.6-8.9); Platelet Count 234 K/mcL (140-400); Red Blood Count 3.77 M/mcL (4.19-5.50); Red Cell Distribution Width 13.7 % (11.5-14.5); Segmented Neutrophils % 57.3 %; White Blood Count 6.7 K/mcL (4.3-11.1)
[2019-10-29 04:18] LABS: BUN/Creatinine Ratio 18 (6-26); Blood Urea Nitrogen 15 mg/dL (6-20); Carbon Dioxide 28 mEq/L (23-29); Chloride 109 mEq/L (98-107); Glucose 105 mg/dL (70-105); Magnesium 1.7 mg/dL (1.6-2.6); Osmolality,Calculated 291 (280-300); Phosphorous 3.1 mg/dL (2.7-4.5); Potassium 3.7 mEq/L (3.5-5.1); Sodium 140 mEq/L (136-145); eGFR For African Americans > 60 (> 60); eGFR For Non-African Americans > 60 (> 60)
[2019-10-29] MEDS: *HR* Enoxaparin 40 MG/0.4 ML SYRINGE SQ SCH (05:33)
[2019-10-29] MEDS: 0.9 % Sodium Chloride 1,000 ML IVC SCH (08:39)
[2019-10-29] MEDS: Meropenem 1,000 MG in 0.9 % Sodium Chloride Mini Bag 100 ML IVPB SCH (08:39)
[2019-10-29] MEDS: Simethicone 80 MG TAB.CHEW PO PRN (08:46)
[2019-10-29] MEDS ORDERED: Fosfomycin Tromethamine 3 GM Packet PO ONE (14:00)
[2019-10-29 14:31] VITALS: BP 151/89
[2019-10-29] MEDS ORDERED: Clinimix E 5%-15% SOLUTION 2,000 ML with MVI, adult with vitamin K 10 ML IVC SCH (17:00)
== END 2019-10-29 16:00 | disposition home or self-care (01) | DRG 871 ==
LOC: EMEROOARM 18:01 → 3ANU 18:01 → SUATTDRO 22:17 → 3ANU 22:43 → SUATTDRO 10-21 14:11 → ICNU 10-21 18:10 → 3ANU 10-24 18:55
PROVIDERS: ADMIT Internal Medicine; ATTEND Internal Medicine

== ENCOUNTER 2020-07-31 21:16 | Inpatient (IN) ==
[2020-07-31] MEDS ORDERED: Isovue-370 500 ML BOTTLE IVP ONE (22:06)
[2020-07-31] MEDS ORDERED: Ketorolac 15 MG/ML VIAL IVP ONE (22:07)
[2020-07-31] MEDS ORDERED: 0.9 % Sodium Chloride 1,000 ML IVC ONE (22:07)
[2020-07-31 22:46] LABS: Basophils % 0.3 %; Eosinophils % 0.3 %; Hematocrit 42.3 % (37.5-50.1); Hemoglobin 13.7 g/dL (12.9-16.9); Immature Granulocytes % 0.3 % (0-4); Lymphocytes # 0.9 K/mcL (0.6-4.6); Lymphocytes % 23.9 %; Mean Corpuscular HGB Conc 32.4 g/dL (31.6-35.5); Mean Corpuscular Hemoglobin 28.7 pg (28.0-33.3); Mean Corpuscular Volume 88.5 fL (83.0-100.0); Mean Platelet Volume 10.5 fL (9.4-12.4); Monocytes # 0.3 K/mcL (0.0-1.3); Monocytes % 8.4 %; Neutrophils # 2.4 K/mcL (1.6-8.9); Platelet Count 149 K/mcL (140-400); Red Blood Count 4.78 M/mcL (4.19-5.50); Red Cell Distribution Width 13.8 % (11.5-14.5); Segmented Neutrophils % 66.8 %; White Blood Count 3.6 K/mcL (4.3-11.1)
[2020-07-31 23:08] LABS: BUN/Creatinine Ratio 16 (6-26); Blood Urea Nitrogen 17 mg/dL (6-20); Calcium 9.4 mg/dL (8.6-10.3); Carbon Dioxide 28 mEq/L (23-29); Chloride 99 mEq/L (98-107); Glucose 99 mg/dL (70-105); Osmolality,Calculated 280 (280-300); Potassium 3.7 mEq/L (3.5-5.1); Sodium 134 mEq/L (136-145); Troponin I < 0.03 ng/mL (< 0.04); eGFR For African Americans > 60 (> 60); eGFR For Non-African Americans > 60 (> 60)
[2020-07-31 23:33] LABS: Adenovirus Not Detected (Not Detect); Bordetella Pertussis Not Detected (Not Detect); Chlamydophila pneumoniae Not Detected (Not Detect); Coronavirus 229E Not Detected (Not Detect); Coronavirus HKU1 Not Detected (Not Detect); Coronavirus NL63 Not Detected (Not Detect); Coronavirus OC43 Not Detected (Not Detect); Human Metapneumovirus Not Detected (Not Detect); Human Rhinovirus/Enterovirus Not Detected (Not Detect); Influenza A Subtype 2009 H1 Not Detected (Not Detect); Influenza B Not Detected (Not Detect); Mycoplasma pneumoniae Not Detected (Not Detect); Parainfluenza Virus 1 Not Detected (Not Detect); Parainfluenza Virus 2 Not Detected (Not Detect); Parainfluenza Virus 3 Not Detected (Not Detect); Parainfluenza Virus 4 Not Detected (Not Detect); Respiratory Syncytial Virus Not Detected (Not Detect); SARS-CoV-2 Not Detected (Not Detect)
[2020-07-31 23:47] LABS: Bacteria,Urine Many per hpf (None-Few); Bilirubin,Urine Negative (Negative); Blood,Urine Trace (Negative); Clarity,Urine Turbid (Clear); Color,Urine Yellow (Yellow); Glucose,Urine (UA) Normal (Normal); Ketones,Urine Negative (Negative); Leukocyte Esterase,Urine Large (Negative); Nitrite,Urine Negative (Negative); Protein,Urine Trace mg/dL (Neg-Trace); RBC,Urine 0-3 per hpf (0-3); Specific Gravity,Urine 1.014 (1.010-1.025); Squamous Epithelial Cell,Urine Few per hpf (None-Few); Urobilinogen,Urine Normal (Normal); WBC,Urine TNTC per hpf (0-3)
[2020-08-01] MEDS ORDERED: 0.9 % Sodium Chloride 1,000 ML IVC ONE (01:15)
[2020-08-01] MEDS ORDERED: cefTRIAXone 1,000 MG in Water for inj. (sterile) 10 ML IVP SCH (01:15)
[2020-08-01] MEDS ORDERED: Piperacillin/Tazobactam 3.375 GM in 0.9 % Sodium Chloride Mini Bag 100 ML IVPB ONE (03:00)
[2020-08-01] MEDS ORDERED: Vancomycin 2,000 MG 2,000 MG/520 ML IV.SOLN IVPB ONE (03:30)
[2020-08-01] MEDS ORDERED: Acetaminophen 325 MG TABLET PO PRN (05:08)
[2020-08-01] MEDS ORDERED: Naloxone 0.4 MG/ML INJ IVP PRN (05:08)
[2020-08-01] MEDS: *HR* HYDROcodone/Acet 5/325 mg TABLET PO PRN ×2 (06:15→16:51)
[2020-08-01 07:24] LABS: Eosinophils % 1.3 %; Hematocrit 37.9 % (37.5-50.1); Hemoglobin 12.4 g/dL (12.9-16.9); Immature Granulocytes % 0.7 % (0-4); Immature Platelets 3.7 % (1.1-6.1); Lymphocytes % 33.1 %; Mean Corpuscular HGB Conc 32.7 g/dL (31.6-35.5); Mean Corpuscular Hemoglobin 29.3 pg (28.0-33.3); Mean Corpuscular Volume 89.6 fL (83.0-100.0); Mean Platelet Volume 10.7 fL (9.4-12.4); Monocytes # 0.3 K/mcL (0.0-1.3); Monocytes % 9.9 %; Neutrophils # 1.6 K/mcL (1.6-8.9); Platelet Count 120 K/mcL (140-400); Red Blood Count 4.23 M/mcL (4.19-5.50); Red Cell Distribution Width 13.9 % (11.5-14.5)
[2020-08-01 07:39] LABS: BUN/Creatinine Ratio 18 (6-26); Blood Urea Nitrogen 17 mg/dL (6-20); Calcium 8.7 mg/dL (8.6-10.3); Carbon Dioxide 24 mEq/L (23-29); Chloride 104 mEq/L (98-107); Glucose 87 mg/dL (70-105); Osmolality,Calculated 281 (280-300); Potassium 3.6 mEq/L (3.5-5.1); Sodium 135 mEq/L (136-145); eGFR For African Americans > 60 (> 60); eGFR For Non-African Americans > 60 (> 60)
[2020-08-01] MEDS ORDERED: *HR* OxyCODONE Immed Rel 5 MG TABLET PO PRN (08:41)
[2020-08-01] MEDS: Ringers Solution, Lactated 1,000 ML IVC SCH ×2 (09:51→16:42)
[2020-08-01] MEDS: Gabapentin 400 MG CAPSULE PO SCH ×3 (12:34→20:13)
[2020-08-01] MEDS: Piperacillin/Tazobactam 3.375 GM in 0.9 % Sodium Chloride Mini Bag 100 ML IVPB SCH ×2 (12:42→20:13)
[2020-08-01] MEDS: polyethylene glycoL 3350 17 GM POWD.PACK PO SCH (12:45)
[2020-08-01] MEDS ORDERED: MOM Conc 10 ML UD.LIQ PO ONE (16:39)
[2020-08-01] MEDS ORDERED: VANCOMYCIN IVPB SCH (18:00)
[2020-08-01] MEDS: *HR* OxyCODONE Immed Rel 5 MG TABLET PO PRN (20:12)
[2020-08-01] MEDS: OXcarbazepine 150 MG TABLET PO SCH (20:13)
[2020-08-01] MEDS: QUEtiapine Fumarate 100 MG TABLET PO SCH (20:13)
[2020-08-01] MEDS: Sennosides/Docusate Sodium TABLET PO SCH (20:13)
[2020-08-02] MEDS: *HR* HYDROcodone/Acet 5/325 mg TABLET PO PRN ×2 (00:31→23:37)
[2020-08-02] MEDS: Piperacillin/Tazobactam 3.375 GM in 0.9 % Sodium Chloride Mini Bag 100 ML IVPB SCH ×3 (03:55→20:46)
[2020-08-02] MEDS: *HR* OxyCODONE Immed Rel 5 MG TABLET PO PRN ×3 (04:04→21:37)
[2020-08-02 06:18] LABS: Basophils % 0.7 %; Eosinophils # 0.1 K/mcL (0.0-0.6); Eosinophils % 4.5 %; Hematocrit 38.3 % (37.5-50.1); Hemoglobin 12.1 g/dL (12.9-16.9); Lymphocytes % 34.8 %; Mean Corpuscular HGB Conc 31.6 g/dL (31.6-35.5); Mean Corpuscular Hemoglobin 28.5 pg (28.0-33.3); Mean Corpuscular Volume 90.3 fL (83.0-100.0); Mean Platelet Volume 11.1 fL (9.4-12.4); Monocytes # 0.3 K/mcL (0.0-1.3); Monocytes % 8.7 %; Neutrophils # 1.5 K/mcL (1.6-8.9); Platelet Count 112 K/mcL (140-400); Red Blood Count 4.24 M/mcL (4.19-5.50); Red Cell Distribution Width 13.7 % (11.5-14.5); Segmented Neutrophils % 51.3 %; White Blood Count 2.9 K/mcL (4.3-11.1)
[2020-08-02] MEDS: *HR* Enoxaparin 40 MG/0.4 ML SYRINGE SQ SCH (06:53)
[2020-08-02 06:54] LABS: Alanine Aminotransferase 11 Units/L (7-52); Albumin 3.2 g/dL (3.5-5.7); Albumin/Globulin Ratio 1.4 (1.1-2.2); Alkaline Phosphatase 60 Units/L (34-104); Aspartate Amino Transferase 16 Units/L (13-39); BUN/Creatinine Ratio 16 (6-26); Bilirubin,Total 0.4 mg/dL (0.3-1.0); Blood Urea Nitrogen 14 mg/dL (6-20); Calcium 8.3 mg/dL (8.6-10.3); Carbon Dioxide 23 mEq/L (23-29); Chloride 109 mEq/L (98-107); Globulin 2.3 g/dL (2.4-3.5); Glucose 107 mg/dL (70-105); Magnesium 1.8 mg/dL (1.6-2.6); Osmolality,Calculated 289 (280-300); Phosphorous 2.8 mg/dL (2.7-4.5); Sodium 139 mEq/L (136-145); Total Protein 5.5 g/dL (6.4-8.9); eGFR For African Americans > 60 (> 60); eGFR For Non-African Americans > 60 (> 60)
[2020-08-02] MEDS: Gabapentin 400 MG CAPSULE PO SCH ×4 (10:08→20:43)
[2020-08-02] MEDS: polyethylene glycoL 3350 17 GM POWD.PACK PO SCH (10:09)
[2020-08-02] MEDS: Sennosides/Docusate Sodium TABLET PO SCH ×2 (10:09→20:42)
[2020-08-02] MEDS: *HR* HYDROmorphone (PF) 1 MG/ML SYRINGE IVP ONE (15:01)
[2020-08-02] MEDS ORDERED: *HR* LORazepam 0.5 MG TABLET PO PRN (19:53)
[2020-08-02] MEDS: Melatonin 3 MG TABLET PO PRN (20:44)
[2020-08-02] MEDS: QUEtiapine Fumarate 100 MG TABLET PO SCH (20:44)
[2020-08-02] MEDS: OXcarbazepine 150 MG TABLET PO SCH (20:44)
[2020-08-02] MEDS: VANCOMYCIN IVPB SCH (21:05)
[2020-08-03 01:39] LABS: Immature Granulocytes % 0.2 % (0-4)
[2020-08-03 01:41] LABS: Basophils % 0.7 %; Eosinophils # 0.2 K/mcL (0.0-0.6); Eosinophils % 3.9 %; Hematocrit 36.1 % (37.5-50.1); Hemoglobin 11.3 g/dL (12.9-16.9); Immature Platelets 7.3 % (1.1-6.1); Lymphocytes # 1.9 K/mcL (0.6-4.6); Mean Corpuscular HGB Conc 31.3 g/dL (31.6-35.5); Mean Corpuscular Hemoglobin 28.9 pg (28.0-33.3); Mean Corpuscular Volume 92.3 fL (83.0-100.0); Mean Platelet Volume 11.4 fL (9.4-12.4); Monocytes # 0.4 K/mcL (0.0-1.3); Monocytes % 9.1 %; Platelet Count 136 K/mcL (140-400); Red Blood Count 3.91 M/mcL (4.19-5.50); Red Cell Distribution Width 13.7 % (11.5-14.5); Segmented Neutrophils % 44.1 %; White Blood Count 4.6 K/mcL (4.3-11.1)
[2020-08-03 02:02] LABS: Alanine Aminotransferase 10 Units/L (7-52); Albumin 3.2 g/dL (3.5-5.7); Albumin/Globulin Ratio 1.5 (1.1-2.2); Alkaline Phosphatase 55 Units/L (34-104); Aspartate Amino Transferase 13 Units/L (13-39); BUN/Creatinine Ratio 12 (6-26); Bilirubin,Total 0.3 mg/dL (0.3-1.0); Blood Urea Nitrogen 11 mg/dL (6-20); Calcium 8.3 mg/dL (8.6-10.3); Carbon Dioxide 24 mEq/L (23-29); Chloride 109 mEq/L (98-107); Globulin 2.2 g/dL (2.4-3.5); Glucose 98 mg/dL (70-105); Magnesium 1.9 mg/dL (1.6-2.6); Osmolality,Calculated 285 (280-300); Phosphorous 3.4 mg/dL (2.7-4.5); Potassium 4.4 mEq/L (3.5-5.1); Sodium 138 mEq/L (136-145); Total Protein 5.4 g/dL (6.4-8.9); eGFR For African Americans > 60 (> 60); eGFR For Non-African Americans > 60 (> 60)
[2020-08-03] MEDS: Piperacillin/Tazobactam 3.375 GM in 0.9 % Sodium Chloride Mini Bag 100 ML IVPB SCH ×3 (05:51→22:20)
[2020-08-03] MEDS: *HR* Enoxaparin 40 MG/0.4 ML SYRINGE SQ SCH (05:51)
[2020-08-03] MEDS ORDERED: BuPROPion XL (24 HR) 150 MG TABLET PO SCH (09:00)
[2020-08-03] MEDS: Gabapentin 400 MG CAPSULE PO SCH ×4 (09:54→22:21)
[2020-08-03] MEDS: VANCOMYCIN IVPB SCH ×2 (09:55→22:19)
[2020-08-03] MEDS: polyethylene glycoL 3350 17 GM POWD.PACK PO SCH (10:04)
[2020-08-03] MEDS: Sennosides/Docusate Sodium TABLET PO SCH ×2 (10:05→22:21)
[2020-08-03] MEDS: *HR* OxyCODONE Immed Rel 5 MG TABLET PO PRN ×2 (12:19→20:43)
[2020-08-03] MEDS ORDERED: *HR* HYDROmorphone (PF) 1 MG/ML SYRINGE IVP ONE (13:41)
[2020-08-03] MEDS: *HR* HYDROmorphone (PF) 1 MG/ML SYRINGE IVP ONE (16:52)
[2020-08-03] MEDS: *HR* Promethazine 25 MG/ML VIAL IM PRN (20:57)
[2020-08-03] MEDS: QUEtiapine Fumarate 100 MG TABLET PO SCH (22:22)
[2020-08-03] MEDS: OXcarbazepine 150 MG TABLET PO SCH (22:22)
[2020-08-04] MEDS: Melatonin 3 MG TABLET PO PRN (00:23)
[2020-08-04 04:47] LABS: Basophils % 0.4 %; Eosinophils # 0.3 K/mcL (0.0-0.6); Hematocrit 34.1 % (37.5-50.1); Hemoglobin 11.1 g/dL (12.9-16.9); Immature Granulocytes % 0.2 % (0-4); Lymphocytes # 1.8 K/mcL (0.6-4.6); Lymphocytes % 37.6 %; Mean Corpuscular HGB Conc 32.6 g/dL (31.6-35.5); Mean Corpuscular Hemoglobin 29.1 pg (28.0-33.3); Mean Corpuscular Volume 89.5 fL (83.0-100.0); Mean Platelet Volume 11.3 fL (9.4-12.4); Monocytes # 0.4 K/mcL (0.0-1.3); Monocytes % 8.2 %; Neutrophils # 2.2 K/mcL (1.6-8.9); Platelet Count 156 K/mcL (140-400); Red Blood Count 3.81 M/mcL (4.19-5.50); Red Cell Distribution Width 13.6 % (11.5-14.5); Segmented Neutrophils % 47.6 %; White Blood Count 4.7 K/mcL (4.3-11.1)
[2020-08-04] MEDS: *HR* Enoxaparin 40 MG/0.4 ML SYRINGE SQ SCH (05:02)
[2020-08-04] MEDS: Piperacillin/Tazobactam 3.375 GM in 0.9 % Sodium Chloride Mini Bag 100 ML IVPB SCH ×3 (05:03→19:58)
[2020-08-04 05:06] LABS: Alanine Aminotransferase 9 Units/L (7-52); Albumin/Globulin Ratio 1.4 (1.1-2.2); Alkaline Phosphatase 53 Units/L (34-104); Aspartate Amino Transferase 11 Units/L (13-39); BUN/Creatinine Ratio 16 (6-26); Bilirubin,Total 0.3 mg/dL (0.3-1.0); Blood Urea Nitrogen 15 mg/dL (6-20); Calcium 8.4 mg/dL (8.6-10.3); Carbon Dioxide 26 mEq/L (23-29); Chloride 110 mEq/L (98-107); Globulin 2.2 g/dL (2.4-3.5); Glucose 132 mg/dL (70-105); Magnesium 1.7 mg/dL (1.6-2.6); Osmolality,Calculated 291 (280-300); Phosphorous 3.4 mg/dL (2.7-4.5); Potassium 4.1 mEq/L (3.5-5.1); Sodium 139 mEq/L (136-145); Total Protein 5.2 g/dL (6.4-8.9); eGFR For African Americans > 60 (> 60); eGFR For Non-African Americans > 60 (> 60)
[2020-08-04] MEDS ORDERED: *HR* HYDROmorphone (PF) 1 MG/ML SYRINGE IVP ONE ×2 (08:09→15:00)
[2020-08-04] MEDS: Sennosides/Docusate Sodium TABLET PO SCH ×2 (08:50→21:35)
[2020-08-04] MEDS: polyethylene glycoL 3350 17 GM POWD.PACK PO SCH (08:50)
[2020-08-04] MEDS: Gabapentin 400 MG CAPSULE PO SCH ×4 (08:50→21:35)
[2020-08-04] MEDS: Ondansetron 4 MG/2 ML VIAL IVP PRN ×2 (08:54→21:43)
[2020-08-04] MEDS: VANCOMYCIN IVPB SCH ×2 (11:46→21:35)
[2020-08-04] MEDS: *HR* OxyCODONE Immed Rel 5 MG TABLET PO PRN ×2 (11:49→21:34)
[2020-08-04] MEDS: *HR* Promethazine 25 MG/ML VIAL IM PRN (15:21)
[2020-08-04] MEDS: Lactobacillus 1 EACH CAP.SPRINK PO SCH (21:34)
[2020-08-04] MEDS: OXcarbazepine 150 MG TABLET PO SCH (21:35)
[2020-08-04] MEDS: QUEtiapine Fumarate 100 MG TABLET PO SCH (21:35)
[2020-08-05] MEDS: Melatonin 3 MG TABLET PO PRN (00:48)
[2020-08-05 02:56] LABS: Hematocrit 34.7 % (37.5-50.1); Hemoglobin 11.1 g/dL (12.9-16.9); Mean Corpuscular Hemoglobin 28.8 pg (28.0-33.3); Mean Corpuscular Volume 89.9 fL (83.0-100.0); Mean Platelet Volume 10.9 fL (9.4-12.4); Platelet Count 148 K/mcL (140-400); Red Blood Count 3.86 M/mcL (4.19-5.50); Red Cell Distribution Width 13.6 % (11.5-14.5); White Blood Count 3.9 K/mcL (4.3-11.1)
[2020-08-05 03:10] LABS: BUN/Creatinine Ratio 13 (6-26); Blood Urea Nitrogen 13 mg/dL (6-20); Calcium 8.4 mg/dL (8.6-10.3); Carbon Dioxide 26 mEq/L (23-29); Chloride 109 mEq/L (98-107); Glucose 105 mg/dL (70-105); Osmolality,Calculated 288 (280-300); Potassium 4.5 mEq/L (3.5-5.1); Sodium 139 mEq/L (136-145); eGFR For African Americans > 60 (> 60); eGFR For Non-African Americans > 60 (> 60)
[2020-08-05 03:11] LABS: % Iron Saturation 26 % (20-55); Iron 66 mcg/dL (65-175); Transferrin 180 mg/dL (203-362)
[2020-08-05 03:29] LABS: Ferritin 50 ng/mL (20-250)
[2020-08-05 03:35] LABS: Folate 6.1 ng/mL (3.0-16.0)
[2020-08-05] MEDS: Piperacillin/Tazobactam 3.375 GM in 0.9 % Sodium Chloride Mini Bag 100 ML IVPB SCH (03:48)
[2020-08-05] MEDS: *HR* Enoxaparin 40 MG/0.4 ML SYRINGE SQ SCH (05:26)
[2020-08-05 06:31] VITALS: BP 108/74
[2020-08-05] MEDS: polyethylene glycoL 3350 17 GM POWD.PACK PO SCH (07:38)
[2020-08-05] MEDS: Lactobacillus 1 EACH CAP.SPRINK PO SCH (07:39)
[2020-08-05] MEDS: *HR* OxyCODONE Immed Rel 5 MG TABLET PO PRN (07:39)
[2020-08-05] MEDS: Gabapentin 400 MG CAPSULE PO SCH (07:39)
[2020-08-05] MEDS: Sennosides/Docusate Sodium TABLET PO SCH (07:39)
[2020-08-05] MEDS ORDERED: Iron Sucrose Complex 400 MG in 0.9 % Sodium Chloride 250 ML IVPB ONE (08:00)
[2020-08-05] MEDS ORDERED: Cyanocobalamin (B-12) 1,000 MCG/ML VIAL SQ ONE (08:04)
[2020-08-05] MEDS ORDERED: Cyanocobalamin (B-12) 1,000 MCG TABLET PO SCH (09:00)
[2020-08-05] MEDS ORDERED: *HR* HYDROmorphone (PF) 1 MG/ML SYRINGE IVP STA (09:28)
[2020-08-05] MEDS ORDERED: Vancomycin 1,250 MG 1,250 MG/262.5 ML IV.SOLN IVPB SCH (12:00)
== END 2020-08-05 12:55 | disposition home or self-care (01) | DRG 699 ==
LOC: EMEROOARM 21:16 → 2NENU 21:16 → SUATTDRO 08-01 03:47 → 2NENU 08-01 05:03 → 3ANU 08-02 05:14
PROVIDERS: ADMIT Internal Medicine; ATTEND Internal Medicine

== ENCOUNTER 2020-09-03 16:31 | Inpatient (IN) ==
[~2020-09-03 16:31] MED LIST: Naloxone 0.4 MG/ML INJ IVP PRN; Ondansetron ODT 4 MG TAB.RAPDIS SL PRN
[2020-09-03 18:06] LABS: Basophils % 0.6 %; Eosinophils # 0.3 K/mcL (0.0-0.6); Eosinophils % 5.1 %; Hematocrit 40.3 % (37.5-50.1); Hemoglobin 12.9 g/dL (12.9-16.9); Immature Granulocytes % 0.8 % (0-4); Lymphocytes # 1.8 K/mcL (0.6-4.6); Mean Corpuscular Hemoglobin 28.8 pg (28.0-33.3); Mean Platelet Volume 10.5 fL (9.4-12.4); Monocytes # 0.4 K/mcL (0.0-1.3); Monocytes % 8.6 %; Neutrophils # 2.5 K/mcL (1.6-8.9); Platelet Count 170 K/mcL (140-400); Red Blood Count 4.48 M/mcL (4.19-5.50); Red Cell Distribution Width 13.8 % (11.5-14.5); Segmented Neutrophils % 49.9 %; White Blood Count 5.1 K/mcL (4.3-11.1)
[2020-09-03 18:17] LABS: INR 1.1; Prothrombin Time 12.2 Seconds (9.4-12.1)
[2020-09-03 18:19] LABS: BUN/Creatinine Ratio 16 (6-26); Blood Urea Nitrogen 14 mg/dL (6-20); Calcium 8.9 mg/dL (8.6-10.3); Carbon Dioxide 30 mEq/L (23-29); Chloride 104 mEq/L (98-107); Glucose 99 mg/dL (70-105); Magnesium 1.7 mg/dL (1.6-2.6); Osmolality,Calculated 289 (280-300); Phosphorous 3.6 mg/dL (2.7-4.5); Potassium 4.1 mEq/L (3.5-5.1); Sodium 139 mEq/L (136-145); eGFR For African Americans > 60 (> 60); eGFR For Non-African Americans > 60 (> 60)
[2020-09-03] MEDS ORDERED: Morphine Sulfate 2 MG/ML SYRINGE IVP ONE (21:27)
[2020-09-04] MEDS: Morphine Sulfate 2 MG/ML SYRINGE IVP PRN ×7 (01:08→22:58)
[2020-09-04] MEDS: 0.9 % Sodium Chloride 1,000 ML IVC SCH ×2 (01:09→12:26)
[2020-09-04] MEDS: *HR* Enoxaparin 40 MG/0.4 ML SYRINGE SQ SCH (05:26)
[2020-09-04] MEDS ORDERED: *HR* Propofol 200 MG/20 ML VIAL IVP ONE ×2 (07:18→08:16)
[2020-09-04] MEDS ORDERED: Lidocaine -MPF 2% 5 ML VIAL ONE (07:18)
[2020-09-04] MEDS: Gabapentin 400 MG CAPSULE PO SCH ×2 (16:32→19:45)
[2020-09-04] MEDS ORDERED: QUEtiapine Fumarate 100 MG TABLET PO SCH (21:00)
[2020-09-04] MEDS ORDERED: OXcarbazepine 150 MG TABLET PO SCH (21:00)
[2020-09-05] MEDS: *HR* Enoxaparin 40 MG/0.4 ML SYRINGE SQ SCH (02:52)
[2020-09-05] MEDS: Morphine Sulfate 2 MG/ML SYRINGE IVP PRN ×4 (03:00→13:41)
[2020-09-05] MEDS ORDERED: *HR* Meperidine 25 MG/ML SYRINGE IVP PRN (08:06)
[2020-09-05] MEDS ORDERED: *HR* HYDROmorphone PF 0.5 MG/0.5 ML SYRINGE IVP PRN (08:06)
[2020-09-05] MEDS ORDERED: Ondansetron 4 MG/2 ML VIAL IVP PRN (08:06)
[2020-09-05] MEDS ORDERED: Acetaminophen IV 1,000 MG/100 ML BAG IVPB PRN (08:06)
[2020-09-05] MEDS ORDERED: *HR* FentaNYL (PF) 100 MCG/2 ML VIAL IVP PRN (08:06)
[2020-09-05] MEDS ORDERED: *HR* Midazolam HCl 2 MG/2 ML VIAL IVP PRN (08:06)
[2020-09-05] MEDS ORDERED: Cyanocobalamin (B-12) 1,000 MCG TABLET PO SCH (09:00)
[2020-09-05] MEDS ORDERED: Losartan/HCTZ 50-12.5 TABLET PO SCH (09:00)
[2020-09-05] MEDS ORDERED: Cholecalciferol (D-3) 1,000 UNIT (25MCG) TABLET PO SCH (09:00)
[2020-09-05] MEDS: Gabapentin 400 MG CAPSULE PO SCH ×4 (09:32→22:01)
[2020-09-05] MEDS ORDERED: *HR* Propofol 200 MG/20 ML VIAL IVP ONE ×2 (11:55→19:05)
[2020-09-05] MEDS ORDERED: *HR* Midazolam HCl 2 MG/2 ML VIAL ONE (11:55)
[2020-09-05] MEDS ORDERED: *HR* FentaNYL (PF) 100 MCG/2 ML VIAL ONE ×2 (11:55→15:58)
[2020-09-05] MEDS ORDERED: Lidocaine -MPF 2% 2 ML VIAL ONE (12:35)
[2020-09-05] MEDS ORDERED: Lidocaine HCL 4 ML Topical Solution (Laryng-O-Jet Kit Sterile Pak) TP ONE (12:35)
[2020-09-05] MEDS ORDERED: Ondansetron 4 MG/2 ML VIAL ONE (12:35)
[2020-09-05] MEDS ORDERED: *HR* Rocuronium Bromide 50 MG/5 ML VIAL ONE ×2 (12:35→16:29)
[2020-09-05] MEDS ORDERED: *HR* Succinylcholine 200 MG/10 ML VIAL IVP ONE (12:35)
[2020-09-05] MEDS ORDERED: *HR* HYDROMORPHONE 2 MG/ML VIAL ONE (12:36)
[2020-09-05] MEDS ORDERED: ceFAZolin 3,000 MG in Water for inj. (sterile) 30 ML IVP ONE (16:11)
[2020-09-05] MEDS ORDERED: MetroNIDAZOLE 500 MG/100 ML 500 MG/100 ML BAG IVPB ONE (16:12)
[2020-09-05] MEDS ORDERED: Sugammadex Sodium 200 MG/2 ML VIAL IV ONE (16:53)
[2020-09-05] MEDS ORDERED: *HR* HYDROmorphone 2 MG/ML SYRINGE ONE (19:21)
[2020-09-05] MEDS ORDERED: Acetaminophen IV 1,000 MG/100 ML BAG IVPB ONE (19:25)
[2020-09-05] MEDS ORDERED: Ondansetron 4 MG/2 ML VIAL IVP ONE (19:27)
[2020-09-05] MEDS: *HR* HYDROmorphone (PF) 1 MG/ML SYRINGE IVP PRN ×4 (19:33→20:00)
[2020-09-05] MEDS ORDERED: *HR* OxyCODONE Immed Rel 5 MG TABLET PO PRN (20:29)
[2020-09-05] MEDS ORDERED: Ondansetron ODT 4 MG TAB.RAPDIS SL PRN (20:29)
[2020-09-05] MEDS ORDERED: Naloxone 0.4 MG/ML INJ IVP PRN (20:29)
[2020-09-05] MEDS ORDERED: Morphine Sulfate 2 MG/ML SYRINGE IVP PRN (20:29)
[2020-09-05] MEDS ORDERED: 0.9 % Sodium Chloride 2,000 ML IV ONE (20:37)
[2020-09-05] MEDS: *HR* HYDROmorphone 20 MG/20 ML PCA IVC PRN (21:11)
[2020-09-05] MEDS: OXcarbazepine 150 MG TABLET PO SCH (21:14)
[2020-09-05] MEDS: QUEtiapine Fumarate 100 MG TABLET PO SCH ×2 (21:14→21:27)
[2020-09-05] MEDS ORDERED: Chloraseptic Spray 177 ML BOTTLE MM PRN (21:38)
[2020-09-05] MEDS: 0.9 % Sodium Chloride 1,000 ML IVC SCH (21:59)
[2020-09-06] MEDS: Acetaminophen IV 1,000 MG/100 ML BAG IVPB SCH ×5 (00:16→23:30)
[2020-09-06] MEDS: *HR* Enoxaparin 40 MG/0.4 ML SYRINGE SQ SCH (05:36)
[2020-09-06] MEDS: Cyanocobalamin (B-12) 1,000 MCG TABLET PO SCH (10:41)
[2020-09-06] MEDS: Cholecalciferol (D-3) 1,000 UNIT (25MCG) TABLET PO SCH (10:41)
[2020-09-06] MEDS: Losartan/HCTZ 50-12.5 TABLET PO SCH (10:41)
[2020-09-06] MEDS: Gabapentin 400 MG CAPSULE PO SCH ×4 (10:41→20:10)
[2020-09-06] MEDS: D5% in 0.45% NACL w KCl 20 MEQ/1,000 ML MLS IVC SCH ×2 (10:43→22:46)
[2020-09-06 11:39] LABS: BUN/Creatinine Ratio 13 (6-26); Basophils % 0.1 %; Blood Urea Nitrogen 10 mg/dL (6-20); Calcium 8.1 mg/dL (8.6-10.3); Carbon Dioxide 24 mEq/L (23-29); Chloride 109 mEq/L (98-107); Glucose 115 mg/dL (70-105); Magnesium 1.6 mg/dL (1.6-2.6); Osmolality,Calculated 284 (280-300); Potassium 4.1 mEq/L (3.5-5.1); Red Blood Count 4.05 M/mcL (4.19-5.50); Sodium 137 mEq/L (136-145); eGFR For African Americans > 60 (> 60); eGFR For Non-African Americans > 60 (> 60)
[2020-09-06 11:41] LABS: Hematocrit 37.4 % (37.5-50.1); Hemoglobin 11.7 g/dL (12.9-16.9); Immature Granulocytes % 0.4 % (0-4); Immature Platelets 4.4 % (1.1-6.1); Lymphocytes # 1.2 K/mcL (0.6-4.6); Lymphocytes % 14.7 %; Mean Corpuscular HGB Conc 31.3 g/dL (31.6-35.5); Mean Corpuscular Hemoglobin 28.9 pg (28.0-33.3); Mean Corpuscular Volume 92.3 fL (83.0-100.0); Mean Platelet Volume 10.7 fL (9.4-12.4); Monocytes # 0.6 K/mcL (0.0-1.3); Monocytes % 7.4 %; Neutrophils # 6.1 K/mcL (1.6-8.9); Platelet Count 140 K/mcL (140-400); Segmented Neutrophils % 77.4 %; White Blood Count 7.9 K/mcL (4.3-11.1)
[2020-09-06] MEDS: *HR* HYDROmorphone 20 MG/20 ML PCA IVC PRN (16:13)
[2020-09-06] MEDS ORDERED: Ketorolac 30 MG/ML VIAL IVP ONE (19:47)
[2020-09-06] MEDS: 0.9 % Sodium Chloride 1,000 ML IVC SCH ×2 (20:08→21:09)
[2020-09-06] MEDS: OXcarbazepine 150 MG TABLET PO SCH (20:10)
[2020-09-06] MEDS: QUEtiapine Fumarate 100 MG TABLET PO SCH (20:10)
[2020-09-06] MEDS: Ketorolac 15 MG/ML VIAL IVP SCH (23:30)
[2020-09-07] MEDS: 0.9 % Sodium Chloride 1,000 ML IVC SCH (00:05)
[2020-09-07] MEDS: Ketorolac 15 MG/ML VIAL IVP SCH ×4 (05:28→23:34)
[2020-09-07] MEDS: Acetaminophen IV 1,000 MG/100 ML BAG IVPB SCH ×4 (05:30→23:47)
[2020-09-07] MEDS: *HR* Enoxaparin 40 MG/0.4 ML SYRINGE SQ SCH (05:33)
[2020-09-07] MEDS: D5% in 0.45% NACL w KCl 20 MEQ/1,000 ML MLS IVC SCH ×2 (07:21→16:17)
[2020-09-07] MEDS: Cholecalciferol (D-3) 1,000 UNIT (25MCG) TABLET PO SCH (09:00)
[2020-09-07] MEDS: Losartan/HCTZ 50-12.5 TABLET PO SCH (09:00)
[2020-09-07] MEDS: Cyanocobalamin (B-12) 1,000 MCG TABLET PO SCH (09:01)
[2020-09-07] MEDS: Gabapentin 400 MG CAPSULE PO SCH ×4 (09:02→20:59)
[2020-09-07] MEDS ORDERED: *HR* HYDROmorphone (PF) 1 MG/ML SYRINGE IVP ONE (15:06)
[2020-09-07] MEDS: MetroNIDAZOLE 500 MG/100 ML 500 MG/100 ML BAG IVPB SCH ×2 (16:18→23:35)
[2020-09-07] MEDS: levoFLOXacin 750 MG/150 ML 750 MG/150 ML BAG IVPB SCH (16:18)
[2020-09-07 19:19] LABS: Basophils % 0.2 %; Eosinophils # 0.1 K/mcL (0.0-0.6); Eosinophils % 0.9 %; Hematocrit 29.2 % (37.5-50.1); Hemoglobin 9.3 g/dL (12.9-16.9); Immature Granulocytes % 0.2 % (0-4); Lymphocytes # 0.8 K/mcL (0.6-4.6); Lymphocytes % 13.6 %; Mean Corpuscular HGB Conc 31.8 g/dL (31.6-35.5); Mean Corpuscular Hemoglobin 28.9 pg (28.0-33.3); Mean Corpuscular Volume 90.7 fL (83.0-100.0); Mean Platelet Volume 10.8 fL (9.4-12.4); Monocytes # 0.3 K/mcL (0.0-1.3); Monocytes % 4.7 %; Neutrophils # 4.6 K/mcL (1.6-8.9); Platelet Count 123 K/mcL (140-400); Red Blood Count 3.22 M/mcL (4.19-5.50); Red Cell Distribution Width 14.1 % (11.5-14.5); Segmented Neutrophils % 80.4 %; White Blood Count 5.7 K/mcL (4.3-11.1)
[2020-09-07 19:35] LABS: BUN/Creatinine Ratio 9 (6-26); Blood Urea Nitrogen 7 mg/dL (6-20); Calcium 8.1 mg/dL (8.6-10.3); Carbon Dioxide 21 mEq/L (23-29); Chloride 110 mEq/L (98-107); Glucose 138 mg/dL (70-105); Magnesium 1.5 mg/dL (1.6-2.6); Osmolality,Calculated 284 (280-300); Potassium 3.8 mEq/L (3.5-5.1); Sodium 137 mEq/L (136-145); eGFR For African Americans > 60 (> 60); eGFR For Non-African Americans > 60 (> 60)
[2020-09-07] MEDS: QUEtiapine Fumarate 100 MG TABLET PO SCH (20:59)
[2020-09-07] MEDS: OXcarbazepine 150 MG TABLET PO SCH (20:59)
[2020-09-07] MEDS ORDERED: Morphine Sulfate 2 MG/ML SYRINGE IVP ONE (23:24)
[2020-09-08] MEDS: Acetaminophen IV 1,000 MG/100 ML BAG IVPB SCH (06:43)
[2020-09-08] MEDS: Ketorolac 15 MG/ML VIAL IVP SCH (06:45)
[2020-09-08] MEDS: *HR* Enoxaparin 40 MG/0.4 ML SYRINGE SQ SCH (06:48)
[2020-09-08] MEDS: D5% in 0.45% NACL w KCl 20 MEQ/1,000 ML MLS IVC SCH (06:49)
[2020-09-08] MEDS: MetroNIDAZOLE 500 MG/100 ML 500 MG/100 ML BAG IVPB SCH ×2 (08:02→17:30)
[2020-09-08] MEDS: levoFLOXacin 750 MG/150 ML 750 MG/150 ML BAG IVPB SCH (08:02)
[2020-09-08] MEDS: Losartan/HCTZ 50-12.5 TABLET PO SCH (08:03)
[2020-09-08] MEDS: Cholecalciferol (D-3) 1,000 UNIT (25MCG) TABLET PO SCH (08:03)
[2020-09-08] MEDS: Gabapentin 400 MG CAPSULE PO SCH ×4 (08:03→20:06)
[2020-09-08] MEDS: Cyanocobalamin (B-12) 1,000 MCG TABLET PO SCH (08:04)
[2020-09-08 08:22] LABS: Basophils % 0.4 %; Eosinophils # 0.1 K/mcL (0.0-0.6); Eosinophils % 2.6 %; Hematocrit 27.6 % (37.5-50.1); Hemoglobin 8.7 g/dL (12.9-16.9); Immature Granulocytes % 0.4 % (0-4); Lymphocytes # 0.8 K/mcL (0.6-4.6); Lymphocytes % 16.8 %; Mean Corpuscular HGB Conc 31.5 g/dL (31.6-35.5); Mean Corpuscular Hemoglobin 28.7 pg (28.0-33.3); Mean Corpuscular Volume 91.1 fL (83.0-100.0); Mean Platelet Volume 10.4 fL (9.4-12.4); Monocytes # 0.3 K/mcL (0.0-1.3); Monocytes % 5.2 %; Neutrophils # 3.7 K/mcL (1.6-8.9); Platelet Count 116 K/mcL (140-400); Red Blood Count 3.03 M/mcL (4.19-5.50); Red Cell Distribution Width 14.2 % (11.5-14.5); Segmented Neutrophils % 74.6 %
[2020-09-08 08:42] LABS: BUN/Creatinine Ratio 8 (6-26); Blood Urea Nitrogen 6 mg/dL (6-20); Calcium 8.1 mg/dL (8.6-10.3); Carbon Dioxide 25 mEq/L (23-29); Chloride 110 mEq/L (98-107); Glucose 160 mg/dL (70-105); Magnesium 1.5 mg/dL (1.6-2.6); Osmolality,Calculated 289 (280-300); Phosphorous 2.3 mg/dL (2.7-4.5); Potassium 3.9 mEq/L (3.5-5.1); Sodium 139 mEq/L (136-145); eGFR For African Americans > 60 (> 60); eGFR For Non-African Americans > 60 (> 60)
[2020-09-08] MEDS ORDERED: Acetaminophen 325 MG TABLET PO PRN (08:51)
[2020-09-08] MEDS ORDERED: *HR* OxyCODONE Immed Rel 5 MG TABLET PO PRN (08:52)
[2020-09-08] MEDS ORDERED: *HR* OxyCODONE ER (12 HR) 10 MG TABLET PO ONE (09:24)
[2020-09-08] MEDS: methocarbamoL 750 MG TABLET PO SCH ×2 (09:52→17:29)
[2020-09-08] MEDS: Ibuprofen 800 MG TABLET PO SCH ×2 (09:53→17:29)
[2020-09-08] MEDS: Acetaminophen 325 MG TABLET PO SCH ×2 (11:33→17:29)
[2020-09-08 12:07] VITALS: TEMP 98.2
[2020-09-08 15:26] VITALS: BP 106/68; PULSE 82; O2SAT 95
[2020-09-08] MEDS: OXcarbazepine 150 MG TABLET PO SCH (20:05)
[2020-09-08] MEDS: QUEtiapine Fumarate 100 MG TABLET PO SCH (20:06)
== END 2020-09-08 22:07 | disposition home health service (06) | DRG 330 ==
LOC: 3ANU → EDSTATUS 09-04 07:45
PROVIDERS: ADMIT Surgery; ATTEND Surgery

== ENCOUNTER 2020-09-11 12:07 | Observation (INO) ==
[2020-09-11] MEDS ORDERED: *HR* FentaNYL (PF) 100 MCG/2 ML VIAL ONE (12:31)
[2020-09-11] MEDS ORDERED: Ondansetron 4 MG/2 ML VIAL ONE (12:31)
[2020-09-11] MEDS ORDERED: Ondansetron 4 MG/2 ML VIAL IVP ONE (12:32)
[2020-09-11] MEDS ORDERED: *HR* FentaNYL (PF) 100 MCG/2 ML VIAL IVP STA ×2 (12:33→12:41)
[2020-09-11] MEDS: 0.9 % Sodium Chloride 1,000 ML IVC SCH ×12 (12:38→18:53)
[2020-09-11 12:56] LABS: Basophils % 0.3 %; Eosinophils # 0.2 K/mcL (0.0-0.6); Eosinophils % 2.6 %; Hematocrit 38.4 % (37.5-50.1); Immature Granulocytes % 0.4 % (0-4); Lymphocytes # 0.9 K/mcL (0.6-4.6); Lymphocytes % 12.1 %; Mean Corpuscular HGB Conc 32.3 g/dL (31.6-35.5); Mean Corpuscular Hemoglobin 28.6 pg (28.0-33.3); Mean Corpuscular Volume 88.7 fL (83.0-100.0); Mean Platelet Volume 10.1 fL (9.4-12.4); Monocytes # 0.4 K/mcL (0.0-1.3); Monocytes % 5.8 %; Neutrophils # 5.7 K/mcL (1.6-8.9); Platelet Count 269 K/mcL (140-400); Red Blood Count 4.33 M/mcL (4.19-5.50); Red Cell Distribution Width 14.1 % (11.5-14.5); Segmented Neutrophils % 78.8 %; White Blood Count 7.2 K/mcL (4.3-11.1)
[2020-09-11 13:04] LABS: Bacteria,Urine Few per hpf (None-Few); Bilirubin,Urine Negative (Negative); Blood,Urine Negative (Negative); Clarity,Urine Clear (Clear); Color,Urine Light-Yellow (Yellow); Glucose,Urine (UA) Normal (Normal); Ketones,Urine Negative (Negative); Leukocyte Esterase,Urine Moderate (Negative); Mucus,Urine Few per lpf (None-Few); Nitrite,Urine Negative (Negative); Protein,Urine Trace mg/dL (Neg-Trace); RBC,Urine 0-3 per hpf (0-3); Transitional Epi Cells,Urine Few per hpf (None-Few); Urobilinogen,Urine Normal (Normal)
[2020-09-11 13:12] LABS: Hemoglobin 12.4 g/dL (12.9-16.9)
[2020-09-11 13:23] LABS: Alanine Aminotransferase 9 Units/L (7-52); Albumin 3.7 g/dL (3.5-5.7); Albumin/Globulin Ratio 1.2 (1.1-2.2); Alkaline Phosphatase 57 Units/L (34-104); Aspartate Amino Transferase 12 Units/L (13-39); BUN/Creatinine Ratio 10 (6-26); Bilirubin,Direct 0.1 mg/dL (0.0-0.2); Bilirubin,Indirect 0.5 mg/dL (0.0-1.0); Bilirubin,Total 0.6 mg/dL (0.3-1.0); Blood Urea Nitrogen 8 mg/dL (6-20); Calcium 9.7 mg/dL (8.6-10.3); Carbon Dioxide 27 mEq/L (23-29); Chloride 103 mEq/L (98-107); Globulin 3.1 g/dL (2.4-3.5); Glucose 125 mg/dL (70-105); Lipase 16 Units/L (11-82); Osmolality,Calculated 290 (280-300); Sodium 140 mEq/L (136-145); Total Protein 6.8 g/dL (6.4-8.9); eGFR For African Americans > 60 (> 60); eGFR For Non-African Americans > 60 (> 60)
[2020-09-11] MEDS ORDERED: *HR* HYDROmorphone (PF) 1 MG/ML SYRINGE IVP STA (14:03)
[2020-09-11] MEDS ORDERED: Ondansetron 4 MG/2 ML VIAL IVP PRN (15:45)
[2020-09-11] MEDS ORDERED: Naloxone 0.4 MG/ML INJ IVP PRN (15:45)
[2020-09-11] MEDS ORDERED: *HR* Metoprolol 5 MG/5 ML VIAL IVP PRN (15:49)
[2020-09-11] MEDS ORDERED: Chloraseptic Spray 177 ML BOTTLE MM PRN (16:14)
[2020-09-11] MEDS ORDERED: Vancomycin 1,750 MG in 0.9 % Sodium Chloride 250 ML IVPB SCH (17:00)
[2020-09-11] MEDS: Piperacillin/Tazobactam 3.375 GM in 0.9 % Sodium Chloride Mini Bag 100 ML IVPB SCH ×2 (17:06→17:12)
[2020-09-11] MEDS: Pantoprazole 40 MG VIAL IVP SCH (17:24)
[2020-09-11] MEDS: *HR* Heparin 5,000 UNIT/ML VIAL SQ SCH (17:24)
[2020-09-11] MEDS: Vancomycin 1,500 MG/265 ML IV.SOLN IVPB SCH (18:10)
[2020-09-11] MEDS ORDERED: Morphine Sulfate 2 MG/ML SYRINGE IVP ONE (20:10)
[2020-09-11] MEDS: *HR* Promethazine 25 MG/ML VIAL IM PRN (20:42)
[2020-09-12] MEDS: Piperacillin/Tazobactam 3.375 GM in 0.9 % Sodium Chloride Mini Bag 100 ML IVPB SCH ×4 (00:54→19:51)
[2020-09-12] MEDS ORDERED: *HR* LORazepam 2 MG/ML VIAL IVP ONE (01:16)
[2020-09-12 02:20] LABS: Basophils % 0.6 %; Eosinophils # 0.3 K/mcL (0.0-0.6); Eosinophils % 5.5 %; Hematocrit 37.3 % (37.5-50.1); Hemoglobin 11.6 g/dL (12.9-16.9); Immature Granulocytes % 0.4 % (0-4); Lymphocytes # 1.2 K/mcL (0.6-4.6); Lymphocytes % 25.9 %; Mean Corpuscular HGB Conc 31.1 g/dL (31.6-35.5); Mean Corpuscular Hemoglobin 28.5 pg (28.0-33.3); Mean Corpuscular Volume 91.6 fL (83.0-100.0); Mean Platelet Volume 10.1 fL (9.4-12.4); Monocytes # 0.4 K/mcL (0.0-1.3); Monocytes % 7.8 %; Neutrophils # 2.8 K/mcL (1.6-8.9); Platelet Count 244 K/mcL (140-400); Red Blood Count 4.07 M/mcL (4.19-5.50); Red Cell Distribution Width 14.3 % (11.5-14.5); Segmented Neutrophils % 59.8 %; White Blood Count 4.8 K/mcL (4.3-11.1)
[2020-09-12 02:37] LABS: BUN/Creatinine Ratio 9 (6-26); Blood Urea Nitrogen 8 mg/dL (6-20); Calcium 8.6 mg/dL (8.6-10.3); Carbon Dioxide 26 mEq/L (23-29); Chloride 108 mEq/L (98-107); Glucose 101 mg/dL (70-105); Magnesium 1.7 mg/dL (1.6-2.6); Osmolality,Calculated 290 (280-300); Phosphorous 3.3 mg/dL (2.7-4.5); Potassium 3.4 mEq/L (3.5-5.1); Sodium 141 mEq/L (136-145); eGFR For African Americans > 60 (> 60); eGFR For Non-African Americans > 60 (> 60)
[2020-09-12] MEDS: 0.9 % Sodium Chloride 1,000 ML IVC SCH (05:39)
[2020-09-12] MEDS: Vancomycin 1,500 MG/265 ML IV.SOLN IVPB SCH ×2 (05:39→18:10)
[2020-09-12] MEDS: *HR* Heparin 5,000 UNIT/ML VIAL SQ SCH ×2 (05:40→18:10)
[2020-09-12] MEDS ORDERED: Potassium Chloride 40 MEQ, Lidocaine 1% 2 ML in 0.9 % Sodium Chloride 500 ML IVPB ONE (07:27)
[2020-09-12] MEDS: Pantoprazole 40 MG VIAL IVP SCH (12:04)
[2020-09-12] MEDS: *HR* Promethazine 25 MG/ML VIAL IM PRN (12:11)
[2020-09-12] MEDS: OXcarbazepine 150 MG TABLET PO SCH (19:54)
[2020-09-12] MEDS: QUEtiapine Fumarate 100 MG TABLET PO SCH (19:54)
[2020-09-13] MEDS: Piperacillin/Tazobactam 3.375 GM in 0.9 % Sodium Chloride Mini Bag 100 ML IVPB SCH (04:02)
[2020-09-13 05:04] LABS: Basophils % 0.4 %; Eosinophils # 0.3 K/mcL (0.0-0.6); Eosinophils % 6.2 %; Hematocrit 33.3 % (37.5-50.1); Hemoglobin 10.3 g/dL (12.9-16.9); Immature Granulocytes % 0.4 % (0-4); Lymphocytes % 21.4 %; Mean Corpuscular HGB Conc 30.9 g/dL (31.6-35.5); Mean Corpuscular Hemoglobin 28.1 pg (28.0-33.3); Mean Platelet Volume 9.6 fL (9.4-12.4); Monocytes # 0.4 K/mcL (0.0-1.3); Monocytes % 8.5 %; Neutrophils # 3.1 K/mcL (1.6-8.9); Platelet Count 243 K/mcL (140-400); Red Blood Count 3.66 M/mcL (4.19-5.50); Red Cell Distribution Width 14.3 % (11.5-14.5); Segmented Neutrophils % 63.1 %; White Blood Count 4.9 K/mcL (4.3-11.1)
[2020-09-13 05:24] LABS: BUN/Creatinine Ratio 7 (6-26); Blood Urea Nitrogen 6 mg/dL (6-20); Calcium 8.4 mg/dL (8.6-10.3); Carbon Dioxide 25 mEq/L (23-29); Chloride 109 mEq/L (98-107); Glucose 94 mg/dL (70-105); Magnesium 1.8 mg/dL (1.6-2.6); Osmolality,Calculated 287 (280-300); Potassium 3.6 mEq/L (3.5-5.1); Sodium 140 mEq/L (136-145); eGFR For African Americans > 60 (> 60); eGFR For Non-African Americans > 60 (> 60)
[2020-09-13] MEDS: *HR* Heparin 5,000 UNIT/ML VIAL SQ SCH ×2 (06:15→18:17)
[2020-09-13] MEDS: Vancomycin 1,500 MG/265 ML IV.SOLN IVPB SCH (06:16)
[2020-09-13] MEDS ORDERED: MOM Conc 10 ML UD.LIQ PO ONE (08:46)
[2020-09-13] MEDS: Sulfamethoxazole/Trimeth DS 1 EACH TABLET PO SCH ×2 (09:34→22:21)
[2020-09-13] MEDS: Pantoprazole 40 MG VIAL IVP SCH (09:34)
[2020-09-13] MEDS ORDERED: Gabapentin 400 MG CAPSULE PO SCH (15:47)
[2020-09-13] MEDS ORDERED: Simethicone 80 MG TAB.CHEW PO PRN (20:36)
[2020-09-13] MEDS: OXcarbazepine 150 MG TABLET PO SCH (22:19)
[2020-09-13] MEDS: Gabapentin 400 MG CAPSULE PO SCH (22:21)
[2020-09-13] MEDS: QUEtiapine Fumarate 100 MG TABLET PO SCH (22:21)
[2020-09-14 02:20] LABS: Basophils % 0.5 %; Eosinophils # 0.2 K/mcL (0.0-0.6); Eosinophils % 4.1 %; Hematocrit 35.3 % (37.5-50.1); Immature Granulocytes % 0.5 % (0-4); Lymphocytes # 1.1 K/mcL (0.6-4.6); Lymphocytes % 25.1 %; Mean Corpuscular HGB Conc 31.2 g/dL (31.6-35.5); Mean Corpuscular Hemoglobin 28.5 pg (28.0-33.3); Mean Corpuscular Volume 91.5 fL (83.0-100.0); Mean Platelet Volume 10.4 fL (9.4-12.4); Monocytes # 0.4 K/mcL (0.0-1.3); Monocytes % 8.9 %; Neutrophils # 2.7 K/mcL (1.6-8.9); Platelet Count 231 K/mcL (140-400); Red Blood Count 3.86 M/mcL (4.19-5.50); Red Cell Distribution Width 14.1 % (11.5-14.5); Segmented Neutrophils % 60.9 %; White Blood Count 4.4 K/mcL (4.3-11.1)
[2020-09-14 02:41] LABS: BUN/Creatinine Ratio 7 (6-26); Blood Urea Nitrogen 6 mg/dL (6-20); Calcium 8.2 mg/dL (8.6-10.3); Carbon Dioxide 23 mEq/L (23-29); Chloride 106 mEq/L (98-107); Glucose 113 mg/dL (70-105); Magnesium 1.9 mg/dL (1.6-2.6); Osmolality,Calculated 282 (280-300); Phosphorous 2.6 mg/dL (2.7-4.5); Potassium 3.6 mEq/L (3.5-5.1); Sodium 137 mEq/L (136-145); eGFR For African Americans > 60 (> 60); eGFR For Non-African Americans > 60 (> 60)
[2020-09-14] MEDS: *HR* Heparin 5,000 UNIT/ML VIAL SQ SCH ×2 (06:30→17:16)
[2020-09-14] MEDS: Gabapentin 400 MG CAPSULE PO SCH ×4 (09:13→20:33)
[2020-09-14] MEDS: Pantoprazole 40 MG VIAL IVP SCH (09:13)
[2020-09-14] MEDS: Sulfamethoxazole/Trimeth DS 1 EACH TABLET PO SCH ×2 (09:13→20:35)
[2020-09-14] MEDS: Sucralfate 1 GM TABLET PO SCH ×3 (11:21→20:34)
[2020-09-14] MEDS: Simethicone 80 MG TAB.CHEW PO SCH ×2 (14:11→20:34)
[2020-09-14] MEDS: OXcarbazepine 150 MG TABLET PO SCH (20:33)
[2020-09-14] MEDS: QUEtiapine Fumarate 100 MG TABLET PO SCH (20:35)
[2020-09-14] MEDS ORDERED: Melatonin 3 MG TABLET PO SCH (21:00)
[2020-09-15] MEDS: *HR* Heparin 5,000 UNIT/ML VIAL SQ SCH (06:04)
[2020-09-15 06:16] LABS: BUN/Creatinine Ratio 10 (6-26); Blood Urea Nitrogen 10 mg/dL (6-20); Calcium 8.1 mg/dL (8.6-10.3); Carbon Dioxide 26 mEq/L (23-29); Chloride 108 mEq/L (98-107); Glucose 113 mg/dL (70-105); Magnesium 1.8 mg/dL (1.6-2.6); Osmolality,Calculated 288 (280-300); Phosphorous 3.5 mg/dL (2.7-4.5); Potassium 3.6 mEq/L (3.5-5.1); Sodium 139 mEq/L (136-145); eGFR For African Americans > 60 (> 60); eGFR For Non-African Americans > 60 (> 60)
[2020-09-15] MEDS: Gabapentin 400 MG CAPSULE PO SCH ×2 (08:16→13:07)
[2020-09-15] MEDS: Sucralfate 1 GM TABLET PO SCH ×2 (08:18→11:14)
[2020-09-15] MEDS: Sulfamethoxazole/Trimeth DS 1 EACH TABLET PO SCH (08:18)
[2020-09-15] MEDS: Simethicone 80 MG TAB.CHEW PO SCH (08:18)
[2020-09-15 15:30] VITALS: BP 116/77; PULSE 60; TEMP 98.7; O2SAT 95
== END 2020-09-15 17:01 | disposition home health service (06) ==
LOC: EMEROOARM 12:07 → 3ANU 12:07 → SUATTDRO 14:31 → 3ANU 16:31
PROVIDERS: ADMIT Internal Medicine; ATTEND Internal Medicine